=== PATIENT | male | born 1945 | race Caucasian/White ===

== ENCOUNTER → 2016-08-07 | Outpatient (CLI) | payer OTHER, BC ==
[~2016-08-07] MED LIST: AMOX500C3 PO; ASPCH81X PO; ATOR-26 PO; CALC200T PO; CHOL1000 PO; COEN100C7 PO; ESTER C PO; LPR25 PO; MULTTAB58 PO; PANT1TAB48 PO; TICA1TAB PO; VITA400C15 PO; ZNTT/150 PO
[2016-08-07 10:04] LABS: BASO % 0.7 %; BASO ABS # 0.03 K/uL (0-0.2); COMPLETE YES; EOS % 3.4 %; HEMATOCRIT 43.3 % (42-52); IG% 0.2 %; LYMPH % 22.4 %; MEAN CELL VOLUME 91.5 fL (80-100); MEAN CORPUSCULAR HEMOGLOBIN 30.7 pg (25-34); MEAN CORPUSCULAR HGB CONC 33.5 g/dl (32-36); MEAN PLATELET VOLUME 9.2 fL (7.4-10.4); MONO % 11.7 %; NEUT % 61.6 %; PLATELET COUNT 249 K/uL (130-400); RED BLOOD COUNT 4.73 M/uL (4.7-6.1); WHITE BLOOD COUNT 4.46 K/uL (4.8-10.8)
[2016-08-07 10:47] LABS: ALT/SGPT 28 U/L (12-78); AST/SGOT 20 U/L (15-37); BLOOD UREA NITROGEN 13 mg/dl (7-18); BUN/CREATININE RATIO 17.5 (10-20); CARBON DIOXIDE 26 mmol/L (21-32); CHLORIDE 108 mmol/L (98-107); CREATININE 0.72 mg/dl (0.60-1.40); GLUCOSE 88 mg/dl (70-99); POTASSIUM 3.9 mmol/L (3.5-5.1); SODIUM 142 mmol/L (136-145)
[2016-08-07 10:50] LABS: CHOLESTEROL 129 mg/dl (0-200); CHOLESTEROL/HDL RATIO 2.4; HDL CHOLESTEROL 54 mg/dl; LDL CHOLESTEROL CALCULATED 58 mg/dl; TRIGLYCERIDES 85 mg/dl (0-150); VERY LOW DENSITY LIPOPROT CALC 17 mg/dl
== END ==
LOC: C.LAB1850 09:26
PROVIDERS: ATTEND Internal Medicine
DX: E78.5 Hyperlipidemia, unspecified (principal); I25.10 Atherosclerotic heart disease of native coronary artery without angina pectoris; M85.80 Other specified disorders of bone density and structure, unspecified site

== ENCOUNTER → 2016-08-31 | Outpatient (CLI) | payer OTHER, BC | END | disposition home or self-care (01) | LOC: C.MAMM 15:32 | PROVIDERS: ATTEND Internal Medicine | DX: S82.209A Unspecified fracture of shaft of unspecified tibia, initial encounter for closed fracture (principal); X58.XXXA Exposure to other specified factors, initial encounter; Z13.820 Encounter for screening for osteoporosis; M85.89 Other specified disorders of bone density and structure, multiple sites ==

== ENCOUNTER → 2017-02-08 | Outpatient (CLI) | payer OTHER, BC ==
[~2017-02-08] MED LIST changes: +OPTIRAY 320 IV PRN
--- NOTE | 2017-02-08 08:49 | DIAGNOSTIC IMAGING REPORT ---
ABDOMEN AND PELVIS CT WITH AND WITHOUT IV CONTRAST, UROGRAM PROTOCOL CT DOSE: 1617.01 mGycm HISTORY: MICROHEMATURIA TECHNIQUE: Multiaxial CT images of the abdomen and pelvis were performed both before and after the use of intravenous contrast to evaluate the urinary system. Maximal intensity projection images were performed at the workstation by the radiologist. A dose lowering technique was utilized adhering to the principles of ALARA. COMPARISON STUDY: Chest abdomen pelvis CTA 05/23/2013. FINDINGS: No renal or ureteral calculi. No hydronephrosis. No suspicious filling defects seen within the bilateral renal collecting systems, ureters, or bladder. Of note, the proximal to mid right ureter is not opacified but appears to be normal in caliber. Multiple bilateral renal hypodense lesions. Some of these are subcentimeter in size and therefore technically too small to characterize. Dominant lesion within the right kidney measures 8 cm and dominant lesion within the left kidney measures 6.5 cm. These are consistent with cysts. Bladder is not well-distended. There is moderate bladder wall thickening. Tiny diverticulum within the left side of the bladder. Punctate calcification associated with a 1.4 cm hypodense lesion within the left kidney. This is similar to the prior study and likely represents a cyst. Bilateral L5 spondylolysis. There is associated grade I anterolisthesis. Old anterior wedge-shaped compression deformity at T12. Multiple diverticula at the third portion of the duodenum. The liver, spleen, adrenal glands, pancreas, and gallbladder are unremarkable. No retroperitoneal lymphadenopathy. Stable aneurysmal dilatation of the right common iliac artery measuring 2.1 cm. Colonic diverticulosis. No bowel wall thickening or obstruction. Normal appendix. Consolidation seen within the lingula which is only partially visualized. This measures 3 cm. IMPRESSION: 1. No renal or ureteral stones. No hydronephrosis. 2. No suspicious filling defects seen within the opacified bilateral renal collecting systems, ureters, or bladder. 3. Moderate bladder wall thickening. Some of this could be related to the decompression. However, a cystitis is suspected. Recommend correlation with urinalysis. 4. Focal 3 cm consolidation within the lingula which is only partially imaged on this study. Recommend dedicated chest CT for further evaluation and to exclude the possibility of a pulmonary lesion. 5. Bilateral renal hypodense lesions. These favor cysts.. 6. 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 7. Additional findings as described above. 8. These findings were called/faxed to the referring physician's office following dictation. Electronically signed by: Milo Sahni M.D. 02/08/2017 8:48 AM Dictated Date/Time: 02/08/2017 8:22 AM
== END | disposition home or self-care (01) ==
LOC: C.CTS 07:42
PROVIDERS: ATTEND Nurse Practitioner Adult Health
DX: R31.29 Other microscopic hematuria (principal); N32.9 Bladder disorder, unspecified; N28.9 Disorder of kidney and ureter, unspecified; I72.3 Aneurysm of iliac artery

== ENCOUNTER → 2017-02-15 | Outpatient (CLI) | payer OTHER, BC ==
[~2017-02-15] MED LIST changes: -OPTIRAY 320 IV PRN
--- NOTE | 2017-02-15 09:14 | DIAGNOSTIC IMAGING REPORT ---
(CHEST) THORAX WITHOUT CLINICAL HISTORY: 71 years-old Male presenting with R91.1 Pulmonary [id number], follow-up. TECHNIQUE: Multidetector CT imaging of the chest was performed without the use of intravenous contrast. IV contrast: None. A dose lowering technique was used consistent with the principles of ALARA (as low as reasonably achievable). COMPARISON: Correlation made to CT from 02/08/2017. CT DOSE (mGy.cm): The estimated cumulative dose is 432.86 mGycm. FINDINGS: Sterile Tech topogram: Unremarkable. On soft tissue windows, normal thyroid and thoracic inlet. No axillary, supraclavicular, or mediastinal lymphadenopathy. Evaluation of the kirsten limited without intravenous contrast. Ectasia of the ascending aorta, which measures 4.3 cm in transverse dimension. Coronary artery calcification. Normal heart size. No pericardial or pleural effusion. Multiple prominent hypodensities in the kidneys likely cysts but are incompletely characterized. On lung windows, previous seen noted consolidation in the lingula abuts the major fissure and extends to the overlying pleura as well as extending centrally along the peribronchovascular region. Mild emphysema. Solid subpleural 6 mm nodule in the left lower lobe (series 4 image 196). Minimal groundglass opacity in the right lower lobe adjacent to the tortuous descending thoracic aorta, likely atelectasis. Triangular fissural solid nodule in the right upper lobe measuring 5 mm (series 4 image 185). Airways patent. On bone windows, degenerative changes of the spine. Mild osteopenia. Anterior wedging deformity of L1 with approximately 50% height loss. Superior endplate concavity of T9. IMPRESSION: 1. Consolidation in the lingula. In the absence of infectious symptoms, this is concerning for primary bronchogenic neoplasm. Allowing for noncontrast technique, no gross evidence of lymphadenopathy. 2. Solid 6 mm left lower lobe and solid 5 mm right upper lobe nodules. Follow-up per [employer] Society 2017 recommendations. 3. Emphysema. 4. Osteopenia with compression deformity of L1, age indeterminate. Correlate for point tenderness to assess for acuity. The report will be called/faxed according to standard departmental protocol. Please refer to below summary of Fleischner Society 2017 recommendations for follow-up of incidental CT nodules (H Gricelda et al. Guidelines for management of incidental pulmonary nodules detected on CT images: From the Fleischner Society 2017. Radiology 2017; 284: 228-243.) SOLID NODULES Single nodule; size < 6 mm * Low risk patients: No routine follow-up * High risk patients: Optional CT at 12 months Single nodule; size 6-8 mm * Low risk patients: CT at 6-12 months, then consider CT at 18-24 months * High risk patients: CT at 6-12 months, then at 18-24 months Single nodule; size > 8 mm * Either low or high risk patients: Considered CT at 3 months, PET/CT, or tissue sampling Multiple nodules; size < 6 mm * Low risk patients: No routine follow up * High risk patients: Optional CT at 12 months Multiple nodules; size 6-8 mm * Low risk patients: CT at 3-6 months, then consider CT at 18-24 months * High risk patients: CT at 3-6 months, then at 18-24 months Multiple nodules; size > 8 mm * Low risk patients: CT at 3-6 months, then consider at 18-24 months * High risk patients: CT at 3-6 months, then at 18-24 months Note: These guidelines apply to incidental nodules. These guidelines do not apply to patients younger than 35 years, immunocompromised patients, or patients with cancer. * Low risk patients: Minimal or absent history of smoking and/or other known risk factors * High risk patients: History of smoking, exposure to other carcinogens, emphysema, fibrosis, upper lobe location, family history of lung cancer, etc. * If a nodule up to 8 mm is partly solid or is ground glass, further follow-up is required after 24 months to exclude possible slow growing adenocarcinoma. SUBSOLID NODULES Single ground-glass nodule * Nodule size < 6 mm: No routine follow-up * Nodule size > or = 6 mm: CT at 6-12 months to confirm persistence, then CT every 2 years until 5 years Single part-solid nodule * Nodule size < 6 mm: No routine follow-up * Nodules size > or = 6 mm: CT at 3-6 months to confirm persistence. If unchanged and solid component remains < 6 mm, annual CT should be performed for 5 years Multiple nodules * Nodule size < 6 mm: CT at 3-6 months. If stable, consider CT at 2 and 4 years. * Nodules size > or = 6 mm: CT at 3-6 months. Subsequent management based on the most suspicious nodule(s) Electronically signed by: Jin De La Rosa M.D. 02/15/2017 9:12 AM Dictated Date/Time: 02/15/2017 9:00 AM
== END | disposition home or self-care (01) ==
LOC: C.CTS 08:46
PROVIDERS: ATTEND Internal Medicine
DX: R91.8 Other nonspecific abnormal finding of lung field (principal); J43.9 Emphysema, unspecified; M85.88 Other specified disorders of bone density and structure, other site

== ENCOUNTER → 2017-03-14 | Outpatient (CLI) | payer OTHER, BC ==
[~2017-03-14] MED LIST changes: +ACET-1256 PO; +AMOX1TAB43 PO; +BIOF500T PO; -ESTER C PO; -LPR25 PO; +METO25TA56 PO; +PANT1TAB3 PO; -PANT1TAB48 PO; +TRAM-10 PO; -VITA400C15 PO; +VITA400C28 PO
--- NOTE | 2017-03-14 14:57 | DIAGNOSTIC IMAGING REPORT ---
PET/CT SKULL-THIGH CLINICAL HISTORY: PULMONARY NODULE COMPARISON STUDY: Chest CT dated 02/15/2017 FINDINGS: The patient was injected with 15.2 mCi of F 18 labeled FDG. Findings standard induction phase, PET/CT scanning is performed from the skull base the upper thigh region. Activity within the neck is felt to be physiologic. Within the chest, there is no pathologic jessie activity. There is a stable 19 x 7 mm prevascular lymph node. The previously described 5 mm perifissural right upper lobe nodule is barely perceptible on this study. This is not FDG avid. The previously described 6 mm pleural-based left lower lobe pulmonary nodule is also barely perceptible. Again this is not FDG avid. There is a persistent area of masslike consolidation within the lingula measuring 4 cm. This is mildly FDG avid with an SUV maximum of 2.5. Bronchoscopic evaluation and biopsy is recommended in follow-up given the persistence of this abnormality. Within the upper abdomen, there are no FDG avid hepatic or splenic lesions. There are bilateral renal cysts. There are no FDG avid adrenal masses. There is no FDG avid abdominal pelvic lymphadenopathy. There is physiologic urinary tract and bowel activity. There is mild aneurysmal dilatation of the right common iliac artery. IMPRESSION: 1. Persistent area of masslike consolidation within the lingula measuring 4 cm. This should be presumed to represent a bronchogenic carcinoma until proven otherwise. This is mildly FDG avid with SUV maximum of 2.5. Bronchoscopic evaluation and biopsy is recommended in follow-up. 2. No evidence of FDG avid adenopathy. Electronically signed by: Yunier Levi M.D. 03/14/2017 2:56 PM Dictated Date/Time: 03/14/2017 2:40 PM
== END | disposition home or self-care (01) ==
LOC: C.PET 07:12
PROVIDERS: ATTEND Physician Assistant
DX: R91.1 Solitary pulmonary nodule (principal)

== ENCOUNTER 2017-03-16 11:12 | Observation (INO) | payer OTHER, BC ==
[2017-03-13 17:31] LABS: BASO % 0.4 %; BASO ABS # 0.02 K/uL (0-0.2); COMPLETE YES; EOS % 3.4 %; HEMATOCRIT 42.7 % (42-52); IG% 0.2 %; LYMPH % 29.1 %; LYMPH ABS # 1.56 K/uL (1.2-3.4); MEAN CORPUSCULAR HEMOGLOBIN 31.3 pg (25-34); MEAN PLATELET VOLUME 9.1 fL (7.4-10.4); MONO % 12.7 %; NEUT % 54.2 %; PLATELET COUNT 263 K/uL (130-400); RED BLOOD COUNT 4.64 M/uL (4.7-6.1); WHITE BLOOD COUNT 5.37 K/uL (4.8-10.8)
[2017-03-13 17:43] LABS: PARTIAL THROMBOPLASTIN RATIO 1.1; PROTHROMBIN TIME (PATIENT) 10.8 SECONDS (9.0-12.0)
[2017-03-13 18:04] LABS: ALT/SGPT 30 U/L (12-78); BLOOD UREA NITROGEN 16 mg/dl (7-18); BUN/CREATININE RATIO 19.7 (10-20); CARBON DIOXIDE 26 mmol/L (21-32); CHLORIDE 104 mmol/L (98-107); CREATININE 0.81 mg/dl (0.60-1.40); GLUCOSE 85 mg/dl (70-99); POTASSIUM 4.1 mmol/L (3.5-5.1); SODIUM 137 mmol/L (136-145)
[2017-03-13 18:07] LABS: ALKALINE PHOSPHATASE 75 U/L (45-117); AST/SGOT 22 U/L (15-37)
[2017-03-14 16:48] VITALS: BMI 29.0
[2017-03-16] VITALS (8 sets, daily range): BP systolic 97–151; BP diastolic 63–87; PULSE 66–101; TEMP 36.5–37; O2SAT 93–100; Ht 180.3 cm; Wt 93.2 kg
[~2017-03-16] VITALS: Ht 180.3 cm; Wt 93.2 kg
--- NOTE | 2017-03-16 10:19 | History and Physical ---
History & Physical Date of Service Mar 16, 2017. History & Physical 71-year-old male presenting for EBUS/ENB evaluation of pulmonary nodules. Recently the patient was worked up for micro hematuria and imaging noted a lingular infiltrate, CT of the abdomen 02/08/2017. Further evaluation by CT of the chest on 02/18/2017 showed lingular infiltrate as well as 6 mm left lower lobe and 5 mm right upper lobe nodules. PET-CT performed 03/14/2017 shows continuation of a 4 cm persistent atelectasis versus mass type lesion in the lingula with only minimal FDG avidity at 2.5. No other signs of notable FDG avidity were noted. CT of the chest 05/23/2013 does not show this infiltrative pattern/mass within the lingula. She also noted on the CT of the chest as well as PET imaging there appears to be a 6L node with greatest dimension of 7 mm. Patient does have a significant smoking history with greater than a 40 pack per day history. He did quit after coronary artery stents were placed status post NE. . PmHx: 1. Actinic keratosis 2. Benign essential hypertension 3. Cath Stent Placement 4. Colon polyps 5. Coronary arteriosclerosis/NE 6. Dermatitis 7. Diverticula, colon 8. Dyslipidemia 9.\ Esophageal reflux 10. Hypercholesterolemia 11. Internal hemorrhoids 12. Intertrigo 13. Neoplasm of uncertain behavior of skin 14. Osteoarthritis of knee 15. Osteopenia 16. Pulmonary nodule 17. Rosacea 18. Spondylosis without myelopathy or radiculopathy, lumbosacral region 19. Venous insufficiency 20. Bilateral renal cysts 21. History of Closed fracture of tibia 22. History of Compression fracture of lumbar vertebra 23. History of Eustachian tube dysfunction 24. History of allergic rhinitis 25. History of anemia 26. History of Peptic Ulcer Surgical History 1. Cath Stent Placement 2. History of Colonoscopy (Fiberoptic) Screening 3. History of Kidney Surgery Drainage 4. History of Wrist Excision Of Ganglion Family History 1. Family history of hypertension 2. Family history of kidney stones 3. Family history of Prostate Cancer 4. Family history of diabetes mellitus Social History Denied: History of Drug Use Former smoker Marital History - Currently Occupation: Parentage Social alcohol use (Z78.9) Uses Safety Equipment - Seatbelts Current Meds 1. Metoprolol Tartrate 25 MG Oral Tablet; TAKE ONE-HALF TABLET BY MOUTH TWICE 2. Brilinta 90 MG Oral Tablet; TAKE ONE TABLET BY MOUTH TWICE DAILY DIRECTED; 3. Atorvastatin Calcium 80 MG Oral Tablet; TAKE ONE TABLET BY MOUTH ONCE DAILY AT 4. Pantoprazole Sodium 40 MG Oral Tablet Delayed Release; TAKE 1 TABLET DAILY; 5. Zantac 150 MG Oral Tablet; TAKE 1 TABLET TWICE DAILY; 6. Tamsulosin HCl - 0.4 MG Oral Capsule; Take 1 table PO QD 30 minutes after supper. 7. Calcium 600/Vitamin D 600-400 MG-UNIT Oral Tablet; Take 1 tablet daily; 8. Vitamin D 2000 UNIT Oral Capsule; TAKE ONE TABLET PO QD; 9. Aspirin 81 MG TABS; TAKE 1 TABLET DAILY 10. Multi Complete Oral Capsule; TAKE DIRECTED; 11. Tylenol Extra Strength 500 MG Oral Tablet; TAKE TABLET PRN 12. Vitamin C TABS; 13. Vitamin E 400 UNIT Oral Tablet; Allergies 1. Codeine Derivatives 2. Plavix TABS 3. Sulfa drugs Immunizations Influenza --- Series1: 22-Apr-2012; Series2: 20-Jan-2013; Series3: 05-Jan-2014; Series4: 04-Feb-2015; Series5: 29-Dec-2015; Series6: 12-Feb-2017 PCV --- Series1: 09-Aug-2016 PPSV --- Series1: 08-Aug-2012 Vital Signs Height: 5 ft 11 in Weight: 209 lb BMI Calculated: 29.15 BSA Calculated: 2.15 Heart Rate: 72 Respiration: 18 O2 Saturation: 97, RA Temperature: 97.9 F Blood Pressure: 142 / 86, LUE, Sitting Physical Exam General: Patient is awake, alert, cooperative, and in no acute distress. Well developed. Well-nourished. Skin: Normal appearance, texture, and temperature. No apparent rash or ecchymoses. HEENT: Normocephalic and atraumatic. Eyes are anicteric and non-erythematous. EOMI c PERRLA. Hearing intact and without difficulty. Nose appears normal and without drainage. Trachea midline. Thyroid appears normal, and neck is supple. Lungs: Clear to auscultation. No adventitious sounds heard. No accessory muscle use. Chest is nontender to palpation Heart: Regular rate and rhythm. Normal S1 and S2 heard. No S3/S4, rubs, murmurs , or gallops appreciated. Abdomen: Active bowel sounds heard throughout all 4 quadrants. Abdomen is soft and nontender with no organomegally or masses to palpation. Extremities: No cyanosis or edema. Gait normal and without difficulty. Freely moving extremities during exam. Neuro: Alert and oriented X3. CN II-XII grossly intact. Sensation and motor function grossly intact. Psych: Mood and affect are normal.
[~2017-03-16 11:12] MED LIST changes: -AMOX1TAB43 PO; +ATROPINE SULFATE 0.1 MG/ML 5ML SYR IV PRN; +EpHEDrine SULFATE INJ 50 MG/ML AMP IV PRN; +FENTANYL CITRATE INJ 50 MCG/1 ML 2 ML VIAL IV PRN; +KETOROLAC TROMETHAMINE 15 MG/ML VIAL IV. PRN; +LACTATED RINGER'S 1000ML 1,000 ML IV SCH; +ONDANSETRON INJ 2 MG/ML 2 ML VIAL IV PRN
--- NOTE | 2017-03-16 11:47 | History & Physical Bridge Note ---
H&P Re-Evaluation Bridge Note: I have examined the patient, reviewed the History & Physical and in the interval since the performance of the History & Physical I have noted the following changes of clinical significance: No changes noted
[2017-03-16] MEDS ORDERED: FENTANYL CITRATE INJ 50 MCG/1 ML 2 ML VIAL ONE ×2 (12:33→14:06)
[2017-03-16] MEDS ORDERED: MIDAZOLAM HCL 1 MG/ML 2ML VIAL ONE (12:33)
[2017-03-16] MEDS ORDERED: ONDANSETRON INJ 2 MG/ML 2 ML VIAL ONE (14:57)
[2017-03-16] MEDS ORDERED: EpHEDrine SULFATE 50MG/5ML SYR ONE (14:57)
[2017-03-16] MEDS ORDERED: PROPOFOL IV EMULSION 10 MG/ML 20 ML VIAL IV ONE (14:57)
--- NOTE | 2017-03-16 15:29 | Discharge Instructions ---
Discharge Instructions Date of Service Mar 16, 2017. Admission Reason for Admission: Pulmonary Nodule Discharge Discharge Diagnosis / Problem: lung nodule Discharge Goals Goal(s): Diagnostic testing Activity Recommendations Activity Limitations: resume your previous activity . Instructions / Follow-Up Instructions / Follow-Up At [facility] pulmonary [facility] Current Hospital Diet Patient's current hospital diet: Discharge Diet Recommended Diet: Regular Diet Procedures Procedures Performed: Endobronchial Ultrasound Guided Bronchoscopy and Electromagnetic Navigational Bronchoscopy, fine needle aspiration, cytology brushing, bronchial washing Pending Studies Studies pending at discharge: yes List of pending studies: Chest x-ray Laboratory Results Lipid Panel Test 02/01/17 08:40 Range/Units Triglycerides Level 92 0-150 mg/dl Cholesterol Level 108 0-200 mg/dl HDL Cholesterol 49 mg/dl Cholesterol/HDL Ratio 2.2 LDL Cholesterol, Calculated 41 mg/dl Medical Emergencies . Who to Call and When: Medical Emergencies: If at any time you feel your situation is an emergency, please call 911 immediately. . Non-Emergent Contact Non-Emergency issues call your: Hse Manager . . "Provider Documentation" section prepared by Arnaldo Kemp. . VTE Core Measure Inpt VTE Proph given/why not?: Other Anticoagulation
--- NOTE | 2017-03-16 15:57 | DIAGNOSTIC IMAGING REPORT ---
CHEST ONE VIEW PORTABLE CLINICAL HISTORY: 71 years-old Male presenting with r/o PTX. TECHNIQUE: 03/16/2017 COMPARISON: 05/23/2013. FINDINGS: Atherosclerosis of aortic arch. Cardiac silhouette top normal in size. Moderate left pneumothorax with a pleural separation measuring 26 mm. Minimal retrocardiac opacity at the left lung base. Right lung and pleural space essentially clear. Degenerative changes of the right acromioclavicular joint. Upper abdomen normal. IMPRESSION: 1. Moderate left pneumothorax with left basilar atelectasis. The report will be called/faxed according to standard departmental protocol. Electronically signed by: Jin De La Rosa M.D. 03/16/2017 3:56 PM Dictated Date/Time: 03/16/2017 3:54 PM
--- NOTE | 2017-03-16 16:00 | DIAGNOSTIC IMAGING REPORT ---
CHEST 1 VIEW FRONTAL CLINICAL HISTORY: [employer] COMPARISON STUDY: PET CT 03/14/2017. FINDINGS: Total fluoroscopy time is 130 seconds. Single fluoroscopic spot image of the left lower chest was submitted. There is a bronchoscope identified within the base of the left lung. IMPRESSION: Fluoroscopy provided for bronchoscopy. Electronically signed by: Milo Sahni M.D. 03/16/2017 3:58 PM Dictated Date/Time: 03/16/2017 3:57 PM
[2017-03-16] MEDS ORDERED: ONDANSETRON INJ 2 MG/ML 2 ML VIAL IV PRN (17:30)
[2017-03-16] MEDS ORDERED: ACETAMINOPHEN 325 MG TAB PO PRN (17:30)
[2017-03-16] MEDS ORDERED: TRAMADOL HCL 50 MG TAB PO PRN (17:45)
--- NOTE | 2017-03-16 18:13 | Anesthesiology Progress Note ---
Anesthesia Post Op Note Date & Time Mar 16, 2017 at 18:13 Vital Signs Pain Intensity: 0 Vital Signs Past 12 Hours Date Time Temp Pulse Resp B/P (MAP) Pulse Ox O2 Delivery O2 Flow Rate FiO2 03/16/17 18:00 36.7 83 20 143/72 100 Room Air 15 Oxymask 03/16/17 17:15 36.5 66 20 143/72 94 Room Air 03/16/17 16:45 36.5 73 20 139/63 93 Room Air 03/16/17 16:16 36.5 66 20 97/66 93 Room Air 03/16/17 16:15 36.1 61 20 118/67 93 Room Air 03/16/17 16:05 58 18 122/77 95 Room Air 03/16/17 15:55 69 20 129/77 93 Room Air 03/16/17 15:45 71 16 122/84 98 Oxymask 10 03/16/17 15:36 36.0 79 18 135/75 96 Oxymask 10 03/16/17 11:50 36.7 77 17 122/67 (85) 97 Room Air Notes Mental Status: alert / awake / arousable, participated in evaluation Pt Amnestic to Procedure: Yes Nausea / Vomiting: adequately controlled Pain: adequately controlled Airway Patency, RR, SpO2: stable & adequate BP & HR: stable & adequate Hydration State: stable & adequate Anesthetic Complications: no major complications apparent
--- NOTE | 2017-03-16 18:32 | Pulmonary Consultation ---
History General Date of Service: Mar 16, 2017. Stated Complaint: Pneumothorax HPI The patient is a 71 year old male who presents to [facility] with complaints of Pulmonary Nodule. The patient's primary care provider is Zack Tate M.D.. 71-year-old male presenting for EBUS/ENB evaluation of pulmonary nodules. Patient underwent EBUS/ENB and postoperatively was noted via a chest x-ray to have a large left-sided pneumothorax. Initially the patient was worked up with CT of the abdomen on 02/08/2017 for hematuria. At that time a lingular infiltrate was noted in the CT of the chest was performed 02/18/2017 showing lingular nodule/mass along with 6 mm left lower lobe and 5 mm right upper lobe nodules. A dedicated PET-CT performed 03/14/2017 showed continuation of the 4 centimeter lingular atelectasis versus mas with minimal FDG avidity at 2.5. Because the mass was notably large patient then underwent EBUS/ENB today secondary to the transthoracic needle aspirations patient incurred a pneumothorax. Postoperatively the patient is notably stable but does note pleuritic chest pain on the left side. He has a PmHx: Significant for: Microscopic hematuria, coronary artery disease status post catheterization and stent placement ( Brilinta 90mg & ASA 81mg) and greater than 40 pack per day history of smoking. At the time of my interview the patient denies: Fever, chills, productive cough, hemoptysis or classic cardiac chest pain. PmHx: 1. Actinic keratosis 2. Benign essential hypertension 3. Cath Stent Placement 4. Colon polyps 5. Coronary arteriosclerosis/OK 6. Dermatitis 7. Diverticula, colon 8. Dyslipidemia 9.\ Esophageal reflux 10. Hypercholesterolemia 11. Internal hemorrhoids 12. Intertrigo 13. Neoplasm of uncertain behavior of skin 14. Osteoarthritis of knee 15. Osteopenia 16. Pulmonary nodule 17. Rosacea 18. Spondylosis without myelopathy or radiculopathy, lumbosacral region 19. Venous insufficiency 20. Bilateral renal cysts 21. History of Closed fracture of tibia 22. History of Compression fracture of lumbar vertebra 23. History of Eustachian tube dysfunction 24. History of allergic rhinitis 25. History of anemia 26. History of Peptic Ulcer Surgical History 1. Cath Stent Placement 2. History of Colonoscopy (Fiberoptic) Screening 3. History of Kidney Surgery Drainage 4. History of Wrist Excision Of Ganglion Family History 1. Family history of hypertension 2. Family history of kidney stones 3. Family history of Prostate Cancer 4. Family history of diabetes mellitus Social History Denied: History of Drug Use Former smoker Marital History - Currently Occupation: Parentage Social alcohol use (Z78.9) Uses Safety Equipment - Seatbelts Current Meds 1. Metoprolol Tartrate 25 MG Oral Tablet; TAKE ONE-HALF TABLET BY MOUTH TWICE 2. Brilinta 90 MG Oral Tablet; TAKE ONE TABLET BY MOUTH TWICE DAILY DIRECTED; 3. Atorvastatin Calcium 80 MG Oral Tablet; TAKE ONE TABLET BY MOUTH ONCE DAILY AT 4. Pantoprazole Sodium 40 MG Oral Tablet Delayed Release; TAKE 1 TABLET DAILY; 5. Zantac 150 MG Oral Tablet; TAKE 1 TABLET TWICE DAILY; 6. Tamsulosin HCl - 0.4 MG Oral Capsule; Take 1 table PO QD 30 minutes after supper. 7. Calcium 600/Vitamin D 600-400 MG-UNIT Oral Tablet; Take 1 tablet daily; 8. Vitamin D 2000 UNIT Oral Capsule; TAKE ONE TABLET PO QD; 9. Aspirin 81 MG TABS; TAKE 1 TABLET DAILY 10. Multi Complete Oral Capsule; TAKE DIRECTED; 11. Tylenol Extra Strength 500 MG Oral Tablet; TAKE TABLET PRN 12. Vitamin C TABS; 13. Vitamin E 400 UNIT Oral Tablet; Allergies 1. Codeine Derivatives 2. Plavix TABS 3. Sulfa drugs Immunizations Influenza --- Series1: -Apr-2012; Series2: 20-Jan-2013; Series3: 05-Jan-2014; Series4: 04-Feb-2015; Series5: 29-Dec-2015; Series6: 12-Feb-2017 PCV --- Series1: 09-Aug-2016 PPSV --- Series1: 08-Aug-2012 Vital Signs Height: 5 ft 11 in Weight: 209 lb BMI Calculated: 29.15 BSA Calculated: 2.15 Heart Rate: 72 Respiration: 18 O2 Saturation: 97, RA Temperature: 97.9 F Blood Pressure: 142 / 86, LUE, Sitting Physical Exam General: Patient is awake, alert, cooperative, and in no acute distress. Well developed. Well-nourished. Skin: Normal appearance, texture, and temperature. No apparent rash or ecchymoses. HEENT: Normocephalic and atraumatic. Eyes are anicteric and non-erythematous. EOMI c PERRLA. Hearing intact and without difficulty. Nose appears normal and without drainage. Trachea midline. Thyroid appears normal, and neck is supple. Lungs: Clear to auscultation. No adventitious sounds heard. No accessory muscle use. Chest is nontender to palpation Heart: Regular rate and rhythm. Normal S1 and S2 heard. No S3/S4, rubs, murmurs , or gallops appreciated. Abdomen: Active bowel sounds heard throughout all 4 quadrants. Abdomen is soft and nontender with no organomegally or masses to palpation. Extremities: No cyanosis or edema. Gait normal and without difficulty. Freely moving extremities during exam. Neuro: Alert and oriented X3. CN II-XII grossly intact. Sensation and motor function grossly intact. Psych: Mood and affect are normal. Historian: patient, partner, EMS Review of Systems Constitutional: reports: as stated in HPI Eyes: reports: no symptoms ENT: reports: no symptoms Cardiovascular: reports: no symptoms Respiratory: reports: as stated in HPI Gastrointestinal: reports: no symptoms Genitourinary - Male: reports: no symptoms Musculoskeletal: reports: no symptoms Integumentary: reports: no symptoms Neurologic: reports: no symptoms Psychiatric: reports: no symptoms Endocrine: no symptoms Hematologic / Lymphatic: no symptoms Allergic / Immunologic: no symptoms Past Medical History Past Medical History: Please refer to HPI Past Surgical History: Please refer to [facility] Family History Please refer to HPI Social History Hx Tobacco Use In Past Year?: No (SMOKED 1 1/2 PPD X 50 YRS-QUIT 2013) Smoking Status: Former Smoker Marital status: Immunizations History of Influenza Vaccine: Yes Influenza Vaccine Date: Dec 06, 2012 History of Tetanus Vaccine?: Yes Tetanus Immunization Date: Jun 05, 2010 History of Pneumococcal: Yes Pneumococcal Date: Dec 06, 2012 History of Hepatitis B Vaccine: No History of MDRO History of MDRO: No Allergies Coded Allergies: Chlorhexidine (Verified Allergy, Intermediate, itching-PT DENIES, 03/16/17 ) Clopidogrel (Verified Allergy, Intermediate, RASH, 03/16/17) Unclassified Drugs (Verified Allergy, Unknown, [id number], 03/16/17) Codeine (Verified Adverse Reaction, Intermediate, NAUSEA, 03/16/17) Current Medications Reported Home Medications Medications Dose Route/Sig Max Daily Dose Days Date Category Dose Instructions Lopressor (Metoprolol Tartrate) 25 Mg Tab 12.5 Mg PO BID 03/13/17 Reported Shelia-C (Bioflavonoid Products) 1 Tab Tab 500 Mg PO QAM 03/13/17 Reported Alph-E (Vitamin E) 400 Unit Cap 400 Units PO QAM 03/13/17 Reported Ultram (Tramadol HCl) 50 Mg Tab 50 Mg PO Q4H PRN 03/13/17 Reported Tylenol (Acetaminophen) 500 Mg Tab 1,000 Mg PO PRN 03/13/17 Reported Amoxil (Amoxicillin) 500 Mg Cap 4 Cap PO DAILY 07/19/15 Reported TAKE BEFORE DENTAL/INVASIVE PROCEDURES Coq10 (Coenzyme Q10 (Ubidecarenone)) 100 Mg Cap 1 Cap PO QAM 07/19/15 Reported Oscal 500/200 D-3 (Calcium Carbonate-Vitamin D) 1 Tab Tab 1 Tab PO QAM 07/19/15 Reported Vitamin D3 (Cholecalciferol) 1,000 Unit Tab 1 Tab PO QAM 90 07/19/15 Reported Protonix (Pantoprazole) 40 Mg Tab 40 Mg PO QPM 07/19/15 Reported Zantac (Ranitidine HCl) 150 Mg Tab 150 Mg PO BID 07/19/15 Reported Aspirin Chewable (Aspirin) 81 Mg Chew 81 Mg PO QAM 07/19/15 Reported PER SPOUSE-WILL CONTINUE TAKING BEFORE SURG PER THEIR INSTRUCTIONS Brilinta (Ticagrelor) 90 Mg Tab 1 Tab PO BID 07/19/15 Reported PER SPOUSE-INSTRUCTED TO TAKE LAST DOSE 03/12/17 AM AND HOLD Lipitor (Atorvastatin Calcium) 80 Mg Tab 80 Mg PO QAM 07/19/15 Reported Multivitamin (Multiple Vitamin) 1 Tab Tab 1 Tab PO QAM 01/11/12 Reported Physical Physical Exam Vital Signs: Date Time Temp Pulse Resp B/P (MAP) Pulse Ox O2 Delivery O2 Flow Rate FiO2 03/16/17 18:00 36.7 83 20 143/72 100 Room Air 15 Oxymask 03/16/17 17:15 36.5 66 20 143/72 94 Room Air 03/16/17 16:45 36.5 73 20 139/63 93 Room Air 03/16/17 16:16 36.5 66 20 97/66 93 Room Air 03/16/17 16:15 36.1 61 20 118/67 93 Room Air 03/16/17 16:05 58 18 122/77 95 Room Air 03/16/17 15:55 69 20 129/77 93 Room Air 03/16/17 15:45 71 16 122/84 98 Oxymask 10 03/16/17 15:36 36.0 79 18 135/75 96 Oxymask 10 03/16/17 11:50 36.7 77 17 122/67 (85) 97 Room Air General Appearance: WELL-APPEARING, NO APPARENT DISTRESS Head: NORMOCEPHALIC, ATRAUMATIC Eyes: PERRLA, NO DISCHARGE, EOMI, SCLERAE NORMAL, CONJUNCTIVAE NORMAL ENT: NORMAL EAR EXAM, NORMAL NASAL EXAM, NORMAL MOUTH EXAM, NORMAL THROAT EXAM , NORMAL DENTAL EXAM, NORMAL SINUS EXAM Neck: NORMAL RANGE OF MOTION, NO TENDERNESS, TRACHEA MIDLINE, NO STRIDOR Respiratory: other (Decreased breath sounds left hemithorax notable dullness to percussion) Cardiovasular: REGULAR RATE/RHYTHM, NORMAL S1S2, other (Distant heart sounds unable to auscultate for murmurs rubs or gallops) Abdomen: NON TENDER, NORMAL BOWEL SOUNDS, NO REBOUND, NO MASSES, NO GUARDING, NO ORGANOMEGALY Genitourinary - Male: EXTERNAL GENITALIA NORMAL Back: NORMAL INSPECTION, NO MIDLINE TENDERNESS, NO CVA TENDERNESS, NO PARAVERTEBRAL TTP Upper Extremities: NO EDEMA, NO DEFORMITY, NORMAL ROM Lower Extremities: NO EDEMA, NO DEFORMITY, NORMAL ROM Pulses: carotid (R) (2+), carotid (L) (2+), dorsalis pedis (R) (1+), dorsalis pedis (L) (1+) Neuro: ALERT, ORIENTED x 3, NORMAL MOTOR EXAM, NORMAL SENSATION, NORMAL CEREBELLAR EXAM Reflexes: biceps (R) (2+), bicpes (L) (2+), patellar (R) (1+), patellar (L) (1+ ) Babinski Testing: right (downgoing), left (downgoing) Psychiatric: NORMAL AFFECT, NO SUICIDAL IDEATION Diagnostics Labs Microbiology Results 03/16/17 Fungal Smear, Received Pending 03/16/17 Fungal Culture, Received Pending 03/16/17 Acid Fast Stain, Received Pending 03/16/17 Mycobacterial Culture, Received Pending 03/16/17 Gram Stain, Received Pending 03/16/17 Bronchoalveolar Lavage Culture, Received Pending Diagnostic Radiology Chest x-ray: Shows the large left-sided pneumothorax which appears to have adhesions to the parietal pleural surface as is asymmetrical. Its largest distance at the apices is over 2 centimeters but at the hilum less than 2 centimeters. Impression Assessment and Plan 71-year-old gentleman postprocedural pneumothorax 1. Pneumothorax: At this time will place the patient on high-flow oxygen and monitor over the next 12 hours. I will then obtain a noncontrast CT of the chest for further evaluation of the pneumothorax as it does appear to be asymmetrical in its presentation. If it does not respond to 100% oxygen therapy at that time will perform needle thoracoscopy. 2. Cardiac: Patient does have a history of coronary artery disease currently treated with ASA and Brilinta. Will have to hold at this time for possible tube thoracoscopy.
[2017-03-16] MEDS ORDERED: IV FLUIDS COMPLETED PRN (20:30)
[2017-03-16] MEDS: METOPROLOL TARTRATE 25 MG TAB PO SCH (21:41)
[2017-03-16] MEDS: RANITIDINE HCL 150 MG TAB PO SCH (21:41)
[2017-03-16] MEDS: PANTOprazole SOD 40 MG TAB PO SCH (21:42)
--- NOTE | 2017-03-16 22:07 | History and Physical ---
History & Physical Date & Time of Service: Mar 16, 2017 at 19:40 Chief Complaint: Pulmonary Nodule, Pneumothorax After Biopsy Primary Care Physician: Zack Tate M.D. History of Present Illness Source: patient, family, hospital records 71 yo male here for outpatient bronchoscopy with biopsy of nodule, found to have a left sided pneumothorax post operatively. Patient complaining of some left sided chest pain, no dyspnea or cough. Patient evaluated by Dr. Kemp post operatively, made recommendations for high flow oxygen for 12 hours and will check a CT chest tomorrow and make decision on need for needle thorascopy. Patient also has a history of CAD with stenting in the past, maintained on aspirin and Brilinta. No coronary symptoms prior to biopsy. He has a 40 pack year history but quit after suffering an AL. Past Medical/Surgical History Pulmonary nodule AL with coronary stenting HTN Dyslipidemia Colon polyps GERD Osteopenia PUD Surgical history 1. Cath Stent Placement 2. History of Colonoscopy (Fiberoptic) Screening 3. History of Kidney Surgery Drainage 4. History of Wrist Excision Of Ganglion 5. s/p bronchoscopy Family History Family History 1. Family history of hypertension 2. Family history of kidney stones 3. Family history of Prostate Cancer 4. Family history of diabetes mellitus Social History Smoking Status: Former Smoker Alcohol Use: none Marital Status: Immunizations History of Influenza Vaccine: Yes Influenza Vaccine Date: Dec 06, 2012 History of Tetanus Vaccine?: Yes Tetanus Immunization Date: Jun 05, 2010 History of Pneumococcal: Yes Pneumococcal Date: Dec 06, 2012 History of Hepatitis B Vaccine: No Multi-Drug Resistant Organisms History of MDRO: No Allergies Coded Allergies: Chlorhexidine (Verified Allergy, Intermediate, itching-PT DENIES, 03/16/17 ) Clopidogrel (Verified Allergy, Intermediate, RASH, 03/16/17) Unclassified Drugs (Verified Allergy, Unknown, [id number], 03/16/17) Codeine (Verified Adverse Reaction, Intermediate, NAUSEA, 03/16/17) Home Medications Scheduled Acetaminophen (Tylenol), 1,000 MG PO PRN Amoxicillin (Amoxil), 4 CAP PO DAILY Aspirin (Aspirin Chewable), 81 MG PO QAM Atorvastatin (Lipitor), 80 MG PO QAM Bioflavonoid Products (Shelia-C), 500 MG PO QAM Calcium Carbonate-Vitamin D (Oscal 500/200 D-3), 1 TAB PO QAM Cholecalciferol (Vitamin D3), 1 TAB PO QAM Coenzyme Q10 (Ubidecarenone) (Coq10), 1 CAP PO QAM Metoprolol Tartrate (Lopressor) (Lopressor), 12.5 MG PO BID Multiple Vitamin (Multivitamin), 1 TAB PO QAM Pantoprazole (Protonix), 40 MG PO QPM Ranitidine (Zantac), 150 MG PO BID Ticagrelor (Brilinta), 1 TAB PO BID Vitamin E (Alph-E), 400 UNITS PO QAM Scheduled PRN Tramadol (Ultram), 50 MG PO Q4H PRN for Pain Review of Systems Constitutional: No fever, No chills, No sweats, No weight loss, No weakness, No fatigue, No problem reported Eyes: No worsening of vision, No eye pain, No redness, No discharge, No diplopia, No problem reported ENT: No hearing loss, No unusual epistaxis, No nasal symptoms, No sore throat, No tinnitus, No dental problems, No trouble swallowing, No problem reported Respiratory: No cough, No sputum, No wheezing, No shortness of breath, No dyspnea on exertion, No dyspnea at rest, No hemoptysis, No problem reported Cardiovascular: + chest pain, No orthopnea, No PND, No edema, No claudication, No palpitations, No problem reported Abdomen: No pain, No nausea, No vomiting, No diarrhea, No constipation, No GI bleeding, No problem reported Musculoskeletal: No joint pain, No muscle pain, No swelling, No calf pain, No problem reported Genitourinary - Male: No hematuria, No dysuria, No urinary frequency, No urinary urgency Neurologic: No memory loss, No paralysis, No weakness, No numbness/tingling, No vertigo, No balance problems, No problem reported Psychiatric: No depression symptoms, No anhedonism, No anxiety, No insomnia, No substance abuse, No problem reported Endocrine: No fatigue, No excessive thirst, No excessive urination, No problem reported Hematologic / Lymphatic: No abnormal bleeding/bruising, No clotting problems, No swollen lymph nodes, No night sweats, No problem reported Integumentary: No rash, No itch, No new/changing skin lesions, No color change , No bleeding, No problem reported Allergic / Immunologic: No environmental allergies, No seasonal allergies, No pet sensitivities, No food allergies, No hives, No frequent infections, No poor healing, No prolonged convalescence, No problem reported Physical Exam Vital Signs Date Time Temp Pulse Resp B/P (MAP) Pulse Ox O2 Delivery O2 Flow Rate FiO2 03/16/17 18:25 36.5 94 18 151/80 100 Mask 15.0 100 03/16/17 18:00 36.7 83 20 143/72 100 Room Air 15 Oxymask 03/16/17 17:15 36.5 66 20 143/72 94 Room Air 03/16/17 16:45 36.5 73 20 139/63 93 Room Air 03/16/17 16:16 36.5 66 20 97/66 93 Room Air 03/16/17 16:15 36.1 61 20 118/67 93 Room Air 03/16/17 16:05 58 18 122/77 95 Room Air 03/16/17 15:55 69 20 129/77 93 Room Air 03/16/17 15:45 71 16 122/84 98 Oxymask 10 03/16/17 15:36 36.0 79 18 135/75 96 Oxymask 10 03/16/17 11:50 36.7 77 17 122/67 (85) 97 Room Air General Appearance: WD/WN, no apparent distress Head: normocephalic, atraumatic Eyes: normal inspection, EOMI, sclerae normal ENT: normal ENT inspection, hearing grossly normal, pharynx normal Neck: supple, no adenopathy, no JVD, trachea midline Respiratory/Chest: chest non-tender, lungs clear, no respiratory distress, no accessory muscle use, + decreased breath sounds (absent breath sounds on the left side) Cardiovascular: regular rate, rhythm, no edema, no gallop, no JVD, no murmur, normal peripheral pulses Abdomen/GI: normal bowel sounds, non tender, soft, no organomegaly Back: normal inspection, no CVA tenderness, no muscle spasm, normal range of motion Extremities/Musculoskelatal: normal inspection, no calf tenderness, normal capillary refill, no pedal edema, normal range of motion 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 TECHNIQUE: 03/16/2017 COMPARISON: 05/23/2013. FINDINGS: Atherosclerosis of aortic arch. Cardiac silhouette top normal in size. Moderate left pneumothorax with a pleural separation measuring 26 mm. Minimal retrocardiac opacity at the left lung base. Right lung and pleural space essentially clear. Degenerative changes of the right acromioclavicular joint. Upper abdomen normal. IMPRESSION: 1. Moderate left pneumothorax with left basilar atelectasis. Impression Assessment and Plan 71 yo male here for bronchoscopy with biopsy of pulmonary nodule, developed post procedural pneumothorax on the left - Left sided pneumothorax: high flow oxygen for next [address] in the morning, Dr. Kemp will decide on small needle chest tube hold Brilinta and aspirin in anticipation of possible intervention - Pulmonary nodule: s/p biopsy today, Dr. Kemp will notify of the results - Dyslipidemia: statin therapy - HTN: BP stable, continue home medications Level of Care Telemetry Advanced Directives Existing Living Will: No Existing Power of Medical Reimbursement Manager: No Resuscitation Status FULL RESUSCITATION VTE Prophylaxis VTE Risk Assessment Done? Y/N: Yes Risk Level: Low Given or contraindicated: Other Anticoagulation
[2017-03-17] VITALS (10 sets, daily range): BP systolic 93–125; BP diastolic 60–81; PULSE 63–95; TEMP 36.6–37.2; O2SAT 92–100
[2017-03-17 06:58] LABS: BASO % 0.1 %; BASO ABS # 0.01 K/uL (0-0.2); COMPLETE YES; HEMATOCRIT 40.2 % (42-52); IG% 0.2 %; LYMPH % 8.3 %; LYMPH ABS # 0.76 K/uL (1.2-3.4); MEAN CELL VOLUME 91.8 fL (80-100); MEAN CORPUSCULAR HEMOGLOBIN 31.5 pg (25-34); MEAN CORPUSCULAR HGB CONC 34.3 g/dl (32-36); MEAN PLATELET VOLUME 9.4 fL (7.4-10.4); MONO % 6.4 %; PLATELET COUNT 254 K/uL (130-400); RED BLOOD COUNT 4.38 M/uL (4.7-6.1); WHITE BLOOD COUNT 9.16 K/uL (4.8-10.8)
[2017-03-17 07:17] LABS: BUN/CREATININE RATIO 14.1 (10-20); CALCIUM 8.5 mg/dl (8.5-10.1); CREATININE 0.68 mg/dl (0.60-1.40); POTASSIUM 3.9 mmol/L (3.5-5.1)
[2017-03-17] MEDS: CHOLECALCIFEROL 1000 INTER.UNIT TAB PO SCH (07:34)
[2017-03-17] MEDS: CALCIUM 600MG + VIT D 400 IU TAB PO SCH (07:34)
[2017-03-17] MEDS: TOCOPHERYL, DL-ALPHA 400 INTER.UNIT CAP PO SCH (07:34)
[2017-03-17] MEDS: ATORVASTATIN 20 MG TAB PO SCH (07:34)
[2017-03-17] MEDS: RANITIDINE HCL 150 MG TAB PO SCH ×2 (07:34→20:10)
[2017-03-17] MEDS: ASCORBIC ACID 500 MG TAB PO SCH (07:34)
[2017-03-17] MEDS: METOPROLOL TARTRATE 25 MG TAB PO SCH ×2 (07:34→20:11)
--- NOTE | 2017-03-17 07:34 | Progress Note ---
Subjective Date of Service: Mar 17, 2017. Subjective pt feels slight left sided discomfort and mild BOWENS, DR tang has placed arrow cath to decompress the pneumothorax, will re evaluate in the PM Review of Systems Constitutional: No fever, No chills, No weakness Respiratory: + dyspnea on exertion, No cough, No shortness of breath Cardiac: + chest pain, No orthopnea, No PND, No edema Abdomen: No pain, No nausea, No vomiting, No diarrhea Psychiatric: No depression symptoms, No anhedonism Objective Vital Signs Date Time Temp Pulse Resp B/P (MAP) Pulse Ox O2 Delivery O2 Flow Rate FiO2 03/17/17 04:00 100 Oxymask 15.0 03/17/17 03:35 37.0 95 20 119/81 (94) 98 Free Flow/Blowby 15.0 03/17/17 00:01 100 Oxymask 15.0 03/16/17 23:07 37.0 101 22 115/87 (96) 98 Free Flow/Blowby 15.0 03/16/17 20:00 100 Oxymask 15.0 03/16/17 18:25 36.5 94 18 151/80 100 Mask 15.0 100 03/16/17 18:00 36.7 83 20 143/72 100 Room Air 15 Oxymask 03/16/17 17:15 36.5 66 20 143/72 94 Room Air 03/16/17 16:45 36.5 73 20 139/63 93 Room Air 03/16/17 16:16 36.5 66 20 97/66 93 Room Air 03/16/17 16:15 36.1 61 20 118/67 93 Room Air 03/16/17 16:05 58 18 122/77 95 Room Air 03/16/17 15:55 69 20 129/77 93 Room Air 03/16/17 15:45 71 16 122/84 98 Oxymask 10 03/16/17 15:36 36.0 79 18 135/75 96 Oxymask 10 03/16/17 11:50 36.7 77 17 122/67 (85) 97 Room Air Physical Exam General Appearance: WD/WN, + mild distress Eyes: normal inspection, sclerae normal Extremities: normal range of motion, normal inspection Neurologic/Psychiatric: alert, oriented x 3 Skin: normal color, warm/dry Laboratory Results Last 24 Hours Test 03/17/17 06:10 White Blood Count 9.16 K/uL Red Blood Count 4.38 M/uL Hemoglobin 13.8 g/dL Hematocrit 40.2 % Mean Corpuscular Volume 91.8 fL Mean Corpuscular Hemoglobin 31.5 pg Mean Corpuscular Hemoglobin Concent 34.3 g/dl Platelet Count 254 K/uL Mean Platelet Volume 9.4 fL Neutrophils (%) (Auto) 85.0 % Lymphocytes (%) (Auto) 8.3 % Monocytes (%) (Auto) 6.4 % Eosinophils (%) (Auto) 0.0 % Basophils (%) (Auto) 0.1 % Neutrophils # (Auto) 7.78 K/uL Lymphocytes # (Auto) 0.76 K/uL Monocytes # (Auto) 0.59 K/uL Eosinophils # (Auto) 0.00 K/uL Basophils # (Auto) 0.01 K/uL RDW Standard Deviation 46.0 fL RDW Coefficient of Variation 13.7 % Immature Granulocyte % (Auto) 0.2 % Immature Granulocyte # (Auto) 0.02 K/uL Sodium Level 138 mmol/L Potassium Level 3.9 mmol/L Chloride Level 107 mmol/L Carbon Dioxide Level 24 mmol/L Anion Gap 8.0 mmol/L Blood Urea Nitrogen 10 mg/dl Creatinine 0.68 mg/dl Est Creatinine Clear Calc Drug Dose 118.9 ml/min Estimated GFR () 112.9 Estimated GFR (Non- 97.4 BUN/Creatinine Ratio 14.1 Random Glucose 94 mg/dl Calcium Level 8.5 mg/dl Magnesium Level 2.0 mg/dl Assessment and Plan (1) Pneumothorax after biopsy Assessment & Plan: Pt developed chest pain post bronchoscopy and biopsy, cxr revealed pneumothorax, Dr Tang recommended high flow oxygen and did decompression with catheter on 03/17, will re evaluate to determine need to cath removal in the PM of 03/[address] Tang (2) Pulmonary nodule Assessment & Plan: pulmonary nodule was biopsied, pathology is pending (3) CAD (coronary artery disease) Assessment & Plan: Pt was on pre procedure brillinta, this was held, metoprolol lipitor will be continued no current unstable angina Problem Qualifiers (1) CAD (coronary artery disease): [place] vs. transplanted heart: [place] heart Associated angina: without angina
[2017-03-17] MEDS ORDERED: NON-FORMULARY MEDICATION (Coenzyme Q10 (Ubidecarenone) (Coq10) 1 CAP) PO SCH (09:00)
--- NOTE | 2017-03-17 10:01 | DIAGNOSTIC IMAGING REPORT ---
(CHEST) THORAX WITHOUT CT DOSE: 486.43 mGy.cm HISTORY: Evaluation pneumothorax TECHNIQUE: Multiaxial CT images of the chest were performed without contrast. A dose lowering technique was utilized adhering to the principles of ALARA. COMPARISON: Chest CT 02/15/2017. FINDINGS: There is a moderate to large left pneumothorax of approximately 50%. The lingular consolidation has significantly decreased in size and is now linear. Therefore, this favors atelectasis rather than a mass. There is focal consolidation seen within the mid aspect of the left lower lobe. Trace left pleural fluid. Mild emphysema. The central airways are patent. There is no significant mediastinal shift. Stable 5 mm fissural nodule along the right minor fissure on image 180. Otherwise, the right lung is essentially clear. No suspicious lytic or blastic osseous lesions. No mediastinal or hilar lymphadenopathy. Tortuous descending thoracic aorta. Bilateral renal hypodense lesions are again noted and likely represent cysts. The unenhanced visualized liver, spleen, and adrenal glands are unremarkable. The heart is normal in size. No pericardial effusion. Stable mild aneurysmal dilatation of the ascending thoracic aorta measuring up to 4.6 cm in diameter. IMPRESSION: 1. Moderate to large left pneumothorax with a volume of approximately 50%. 2. Near complete resolution of the lingular density which is now linear in configuration. Therefore, this likely represented a focus of an infectious change or atelectasis. 3. A new focal consolidation within the left lower lobe which may represent atelectasis or pneumonia. 4. Stable mild aneurysmal dilatation of the ascending thoracic aorta measuring 4.6 cm in diameter. 5. These findings were discussed with Dr. Kemp at 9:55 AM on 03/17/2017. Electronically signed by: Milo Sahni M.D. 03/17/2017 10:00 AM Dictated Date/Time: 03/17/2017 9:48 AM
[2017-03-17] MEDS ORDERED: KETOROLAC TROMETHAMINE 15 MG/ML VIAL ONE (11:20)
--- NOTE | 2017-03-17 11:29 | Pulmonology Progress Note ---
Pulmonary Progress Note Date of Service Mar 17, 2017. Attending Dr. Kemp Subjective The patient is doing well today denies any shortness of breath and or pleurisy. Objective Patient is able sit up in bed complete full sentences ambulate throughout the room with no signs of respiratory insufficiency Vital signs: Stable on oxygen supplementation at 15 liters Respiratory: Clear to auscultation right hemithorax decreased breath sounds globally on the left hemithorax Ultrasound: Shows notable pneumothorax there is an area of adhesion or the lung point approximately long-term down mid axillary line on the left hemithorax Cardiac: S1-S2 distant heart sounds but regular rate and rhythm Abdomen: Soft nontender positive bowel sounds a 6 line extremities: No clubbing cyanosis or edema Assessment & Plan 71-year-old gentleman with postprocedural pneumothorax left hemithorax: 1. Pneumothorax: Patient has at least 50% pneumothorax at this time based off chest x-ray, ultrasound and CT. The CT also shows area of consolidation/ atelectasis in the right lower lobe. At this time will place chest tube to help with re-expansion of the lung. 2. Id: Patient is now undergoing 2 procedures and shows atelectasis of the left lower lobe. Will start on Augmentin 875/125 (BID) for 10 day window. Data Medications: Current Inpatient Medications Medications (Trade) Dose Ordered Sig/Eloina Route Start Time Stop Time Status Last Admin Dose Admin Acetaminophen (Tylenol Tab) 650 mg Q4H PRN PO 03/16/17 17:30 04/15/17 17:29 Ondansetron HCl (Zofran Inj) 4 mg Q6H PRN IV 03/16/17 17:30 04/15/17 17:29 Atorvastatin Calcium (Lipitor Tab) 80 mg QAM PO 03/17/17 09:00 04/16/17 08:59 03/17/17 07:34 80 MG Cholecalciferol (Vitamin D Tab) 1,000 inter.unit QAM PO 03/17/17 09:00 04/16/17 08:59 03/17/17 07:34 1,000 INTER.UNIT Metoprolol Tartrate (Lopressor Tab) 12.5 mg BID PO 03/16/17 21:00 04/15/17 20:59 03/17/17 07:34 12.5 MG Pantoprazole Sodium (Protonix Tab) 40 mg QPM PO 03/16/17 21:00 04/15/17 20:59 03/16/17 21:42 40 MG Ranitidine HCl (zANTac TAB) 150 mg BID PO 03/16/17 21:00 04/15/17 20:59 03/17/17 07:34 150 MG Tramadol HCl (Ultram Tab) 50 mg Q4H PRN PO 03/16/17 17:45 04/15/17 17:44 03/17/17 02:06 50 MG [id number] Acetate (Vitamin E Cap) 400 interunit QAM PO 03/17/17 09:00 04/16/17 08:59 03/17/17 07:34 400 INTERUNIT Ascorbic Acid (Vitamin C Tab) 500 mg QAM PO 03/17/17 09:00 04/16/17 08:59 03/17/17 07:34 500 MG Calcium/Vitamin D (Caltrate Plus Tab) 1 tab QAM PO 03/17/17 09:00 04/16/17 08:59 03/17/17 07:34 1 TAB Miscellaneous (Iv Fluids Completed) 1 ea PRN PRN N/A 03/16/17 20:30 03/16/18 20:29 Vital Signs: Date Time Temp Pulse Resp B/P (MAP) Pulse Ox O2 Delivery O2 Flow Rate FiO2 03/17/17 08:11 37.2 90 24 125/67 (86) 96 4.0 03/17/17 08:03 96 Nasal Cannula 3.0 03/17/17 04:00 100 Oxymask 15.0 03/17/17 03:35 37.0 95 20 119/81 (94) 98 Free Flow/Blowby 15.0 03/17/17 00:01 100 Oxymask 15.0 03/16/17 23:07 37.0 101 22 115/87 (96) 98 Free Flow/Blowby 15.0 03/16/17 20:00 100 Oxymask 15.0 03/16/17 18:25 36.5 94 18 151/80 100 Mask 15.0 100 03/16/17 18:00 36.7 83 20 143/72 100 Room Air 15 Oxymask 03/16/17 17:15 36.5 66 20 143/72 94 Room Air 03/16/17 16:45 36.5 73 20 139/63 93 Room Air 03/16/17 16:16 36.5 66 20 97/66 93 Room Air 03/16/17 16:15 36.1 61 20 118/67 93 Room Air 03/16/17 16:05 58 18 122/77 95 Room Air 03/16/17 15:55 69 20 129/77 93 Room Air 03/16/17 15:45 71 16 122/84 98 Oxymask 10 03/16/17 15:36 36.0 79 18 135/75 96 Oxymask 10 03/16/17 11:50 36.7 77 17 122/67 (85) 97 Room Air Laboratory Results: Last 24 Hours Test 03/17/17 06:10 White Blood Count 9.16 K/uL Red Blood Count 4.38 M/uL Hemoglobin 13.8 g/dL Hematocrit 40.2 % Mean Corpuscular Volume 91.8 fL Mean Corpuscular Hemoglobin 31.5 pg Mean Corpuscular Hemoglobin Concent 34.3 g/dl Platelet Count 254 K/uL Mean Platelet Volume 9.4 fL Neutrophils (%) (Auto) 85.0 % Lymphocytes (%) (Auto) 8.3 % Monocytes (%) (Auto) 6.4 % Eosinophils (%) (Auto) 0.0 % Basophils (%) (Auto) 0.1 % Neutrophils # (Auto) 7.78 K/uL Lymphocytes # (Auto) 0.76 K/uL Monocytes # (Auto) 0.59 K/uL Eosinophils # (Auto) 0.00 K/uL Basophils # (Auto) 0.01 K/uL RDW Standard Deviation 46.0 fL RDW Coefficient of Variation 13.7 % Immature Granulocyte % (Auto) 0.2 % Immature Granulocyte # (Auto) 0.02 K/uL Sodium Level 138 mmol/L Potassium Level 3.9 mmol/L Chloride Level 107 mmol/L Carbon Dioxide Level 24 mmol/L Anion Gap 8.0 mmol/L Blood Urea Nitrogen 10 mg/dl Creatinine 0.68 mg/dl Est Creatinine Clear Calc Drug Dose 118.9 ml/min Estimated GFR () 112.9 Estimated GFR (Non- 97.4 BUN/Creatinine Ratio 14.1 Random Glucose 94 mg/dl Calcium Level 8.5 mg/dl Magnesium Level 2.0 mg/dl
--- NOTE | 2017-03-17 11:32 | Procedure Note ---
Procedure Note Date of Service Mar 17, 2017. Procedure Note Procedures: Left sided chest tube Consent: obtained via the patient and placed into the chart Pre-Procedural Dx: Left-sided pneumothorax Post-Procedural Dx: Left-sided pneumothorax Analgesia: 8cc of 1% Liquid Lidocaine Procedure: The patient was placed in an upright position add a 60 degree angle. Patient was draped and prepped in a sterile fashion. Following this a modified Seldinger technique was used for access into the thoracic cavity. An 8 Haitian arrow percutaneous chest tube catheter was used for this procedure. Slid easily into position there was good breath sounds. This was then hooked up to a Heimlich valve. The patient noted minimal discomfort. At this time will monitor the patient repeating chest x-ray in a 2 hour window. If the x-ray notes expansion of the lung at that time will clamp the chest tube and follow- up in on hour window looking for possible return of the patient's pneumothorax. At that time will decide whether to remove the chest tube. EBL: None Complications: None
[2017-03-17] MEDS ORDERED: KETOROLAC TROMETHAMINE 15 MG/ML VIAL IV. STA (11:54)
[2017-03-17] MEDS ORDERED: KETOROLAC TROMETHAMINE 15 MG/ML VIAL IM PRN (12:00)
--- NOTE | 2017-03-17 15:03 | DIAGNOSTIC IMAGING REPORT ---
CHEST ONE VIEW PORTABLE HISTORY: Post biopsy pneumothorax. Follow-up. COMPARISON: Chest 03/16/2017. Chest CT 03/17/2017. FINDINGS: Interval placement of a left upper lung zone pleural catheter. Only the distal 2 cm of the catheter is within the pleural space. This is not well looped. However, the left-sided pneumothorax has essentially resolved in the interval. Left lower lobe airspace opacities persist. The heart is normal in size. The right lung is clear. IMPRESSION: Interval placement of a left upper lung zone pleural catheter. Only the distal 2 cm of the catheter is within the pleural space. This is not well looped. However, the left-sided pneumothorax has essentially resolved in the interval. Electronically signed by: Milo Sahni M.D. 03/17/2017 3:01 PM Dictated Date/Time: 03/17/2017 2:59 PM
[2017-03-17] MEDS: AMOXICILLIN/CLAVULANATE TAB 875 MG TAB PO SCH (20:10)
[2017-03-17] MEDS: PANTOprazole SOD 40 MG TAB PO SCH (20:10)
[2017-03-18 00:01] VITALS: O2SAT 100
[2017-03-18 03:23] VITALS: BP 127/74; PULSE 75; TEMP 36.6; O2SAT 94
[2017-03-18 04:00] VITALS: O2SAT 100
--- NOTE | 2017-03-18 05:23 | DIAGNOSTIC IMAGING REPORT ---
CHEST ONE VIEW PORTABLE CLINICAL HISTORY: 71 years-old Male presenting with Bleeding from chest tube. TECHNIQUE: Portable upright AP view of the chest was obtained. COMPARISON: 03/17/2017. FINDINGS: The left pleural drain is now fully retracted outside of the left pleural cavity. Multiple overlying external leads degrade image quality. Atherosclerosis of aortic arch. Cardiac silhouette mildly enlarged. Left lower lung nodular opacity measuring 2.8 cm. No new focal infiltrate. No residual pneumothorax. No large pleural effusion. Degenerative changes of the left glenohumeral joint. Subcutaneous emphysema overlies the upper left chest. Upper abdomen normal. IMPRESSION: 1. No pneumothorax. The left pleural catheter is now fully outside of the left pleural cavity. Repositioning or replacement recommended. 2. Nodular opacity in the left lower lung. Pneumonia cannot be excluded. Please see separately dictated CT chest from earlier the same day. Electronically signed by: Jin De La Rosa M.D. 03/18/2017 5:22 AM Dictated Date/Time: 03/18/2017 5:19 AM
--- NOTE | 2017-03-18 07:16 | DIAGNOSTIC IMAGING REPORT ---
CHEST ONE VIEW PORTABLE CLINICAL HISTORY: 71 years-old Male presenting with S/p ct removal. TECHNIQUE: Portable upright AP view of the chest was obtained. COMPARISON: 03/17/2017. FINDINGS: The malpositioned left pleural drain has been removed. Cardiac mediastinal silhouette normal apart from added retrocardiac density, either left atrial enlargement or hiatal hernia. Persistent nodular opacity at the left lung base. A central lucency is suggested. No new focal infiltrate. No large effusion or pneumothorax. Osseous structures normal. Upper abdomen normal. IMPRESSION: 1. Status post removal of the left pleural drain. 2. Possibly cavitary nodular opacity at the left lung base. This likely correlates to the lingular consolidation on CT from 02/15/2017. Neoplasm cannot be excluded. Electronically signed by: Jin De La Rosa M.D. 03/18/2017 7:14 AM Dictated Date/Time: 03/18/2017 7:12 AM
[2017-03-18] MEDS: ATORVASTATIN 20 MG TAB PO SCH (07:55)
[2017-03-18] MEDS: CALCIUM 600MG + VIT D 400 IU TAB PO SCH (07:55)
[2017-03-18] MEDS: RANITIDINE HCL 150 MG TAB PO SCH (07:56)
[2017-03-18] MEDS: ASCORBIC ACID 500 MG TAB PO SCH (07:56)
[2017-03-18] MEDS: METOPROLOL TARTRATE 25 MG TAB PO SCH (07:57)
[2017-03-18] MEDS: AMOXICILLIN/CLAVULANATE TAB 875 MG TAB PO SCH (07:58)
[2017-03-18] MEDS: CHOLECALCIFEROL 1000 INTER.UNIT TAB PO SCH (07:58)
[2017-03-18] MEDS: TOCOPHERYL, DL-ALPHA 400 INTER.UNIT CAP PO SCH (07:59)
[2017-03-18 08:00] VITALS: O2SAT 100
[2017-03-18 08:11] VITALS: BP 130/76; PULSE 87; TEMP 37.2; O2SAT 91
[2017-03-18] MEDS ORDERED: AMOX1TAB43 PO (09:42)
--- NOTE | 2017-03-18 09:43 | Discharge Instructions ---
Discharge Instructions Date of Service Mar 18, 2017. Admission Reason for Admission: Pulmonary Nodule, Pneumothorax After Biopsy Discharge Discharge Diagnosis / Problem: left sided pneumothorax, s/p decompression Discharge Goals Goal(s): Diagnostic testing, Therapeutic intervention Activity Recommendations Activity Limitations: as noted below Lifting Limitations: gradually increase as tolerated . Current Hospital Diet Patient's current hospital diet: Regular Diet Discharge Diet Recommended Diet: Regular Diet Procedures Procedures Performed: Endobronchial Ultrasound Guided Bronchoscopy and Electromagnetic Navigational Bronchoscopy, fine needle aspiration, cytology brushing, bronchial washing Pending Studies Studies pending at discharge: yes (p) List of pending studies: pathology of biopsy Laboratory Results Lipid Panel Test 02/01/17 08:40 Range/Units Triglycerides Level 92 0-150 mg/dl Cholesterol Level 108 0-200 mg/dl HDL Cholesterol 49 mg/dl Cholesterol/HDL Ratio 2.2 LDL Cholesterol, Calculated 41 mg/dl Medical Emergencies . Who to Call and When: Medical Emergencies: If at any time you feel your situation is an emergency, please call 911 immediately. . Non-Emergent Contact Non-Emergency issues call your: Construction Scheduler Call Non-Emergent contact if: temperature is above 101, your pain is unusual for you . . "Provider Documentation" section prepared by Arnaldo Bonilla. . VTE Core Measure Inpt VTE Proph given/why not?: Other Anticoagulation
[2017-03-18 10:24] VITALS: BP 130/76; PULSE 87; TEMP 37.2; O2SAT 91
--- NOTE | 2017-03-18 11:12 | Discharge Summary ---
Discharge Summary Date of Service Mar 18, 2017. Discharge Summary Admission Date: Mar 16, 2017 at 17:29 Discharge Date: Mar 16, 2017 Discharge Disposition: Home Principal Diagnosis: pneumothoerax after lung biopsy Immunizations: Have You Had Influenza Vaccine: Yes Influenza Vaccine Date: Dec 06, 2012 History of Tetanus Vaccine?: Yes Tetanus Immunization Date: Jun 05, 2010 History of Pneumococcal: Yes Pneumococcal Date: Dec 06, 2012 History of Hepatitis B Vaccine: No Procedures: catheter drainage of pneumothorax by Dr Kemp Medication Reconciliation New Medications: Amoxicillin & Pot Clavulanate (Amoxicillin/Clavulanate P) 1 Tab Tab 875 MG PO BID, #18 TAB Continued Medications: Acetaminophen (Tylenol) 500 Mg Tab 1000 MG PO PRN, TAB Aspirin (Aspirin Chewable) 81 Mg Chew 81 MG PO QAM PER SPOUSE-WILL CONTINUE TAKING BEFORE SURG PER THEIR INSTRUCTIONS Atorvastatin (Lipitor) 80 Mg Tab 80 MG PO QAM, TAB Bioflavonoid Products (Shelia-C) 1 Tab Tab 500 MG PO QAM Calcium Carbonate-Vitamin D (Oscal 500/200 D-3) 1 Tab Tab 1 TAB PO QAM Cholecalciferol (Vitamin D3) 1,000 Unit Tab 1 TAB PO QAM for 90 Days, #90 TAB 3 Refills Coenzyme Q10 (Ubidecarenone) (Coq10) 100 Mg Cap 1 CAP PO QAM Metoprolol Tartrate (Lopressor) (Lopressor) 25 Mg Tab 12.5 MG PO BID, TAB Multiple Vitamin (Multivitamin) 1 Tab Tab 1 TAB PO QAM, TAB Pantoprazole (Protonix) 40 Mg Tab 40 MG PO QPM, #30 TAB Ranitidine (Zantac) 150 Mg Tab 150 MG PO BID, TAB Ticagrelor (Brilinta) 90 Mg Tab 1 TAB PO BID PER SPOUSE-INSTRUCTED TO TAKE LAST DOSE 03/12/17 AM AND HOLD Tramadol (Ultram) 50 Mg Tab 50 MG PO Q4H PRN for Pain, TAB Vitamin E (Alph-E) 400 Unit Cap 400 UNITS PO QAM Discontinued Medications: Amoxicillin (Amoxil) 500 Mg Cap 4 CAP PO DAILY, #21 CAP TAKE BEFORE DENTAL/INVASIVE PROCEDURES Discharge Exam Review of Systems: Constitutional: No fever, No chills Respiratory: No cough, No sputum, No shortness of breath, No dyspnea on exertion Cardiovascular: No chest pain, No orthopnea, No edema Physical Exam: General Appearance: WD/WN, no apparent distress Eyes: normal inspection, sclerae normal Respiratory/Chest: + decreased breath sounds (left base) Cardiovascular: regular rate, rhythm, no murmur Neurologic/Psychiatric: alert, oriented x 3 Hospital Course (1) Pneumothorax after biopsy (2) Pulmonary nodule (3) CAD (coronary artery disease) 71 M developed pneumothorax after bronchoscopic lung biopsy of left lung nodule , was followed and with pneumothorax size it was decompressed via a catheter by Dr Kemp on 03/17, the catheter removed 03/17 pm, review of cxr and clincal evaluation 03/18 was stable, CXR shows resolution and no re accumulation of air, pt was discharged to complete additional 9 days of augmentin. Follow up with Dr Kemp Total Time Spent: Greater than 30 minutes This includes examination of the patient, discharge planning, medication reconciliation, and communication with other providers. Discharge Instructions Please refer to the electronic Patient Visit Report (Discharge Instructions) for additional information. Problem Qualifiers (1) CAD (coronary artery disease): [place] vs. transplanted heart: [place] heart Associated angina: without angina
--- NOTE | 2017-03-18 13:45 | Pulmonology Progress Note ---
Pulmonary Progress Note Date of Service Mar 18, 2017. Attending Dr. Kemp Subjective Patient with minimal pleurisy only on deep inspiration Objective Patient is able sit up in bed complete full sentences ambulate throughout the room with no signs of respiratory insufficiency Vital signs: Stable on room air Respiratory: Clear to auscultation bilaterally with good breath sounds in the left apices Cardiac: S1-S2 distant heart sounds but regular rate and rhythm Abdomen: Soft nontender positive bowel sounds a 6 line extremities: No clubbing cyanosis or edema Assessment & Plan 71-year-old gentleman with postprocedural pneumothorax left hemithorax: 1. Pneumothorax: Small a Ukrainian chest tube removed last night and notable continued re-expansion of the lung at this time. Patient could be discharged home 2. ID: Patient underwent 2 procedures as well as has a left lower lobe continued infiltrate. Possible secondary to procedural trauma but will continue on Augmentin for total of 10 days. Discharge: Patient is stable for discharge at this time Follow-up: Patient is to follow up with provider Nallely Arroyo on 03/20/2017 with pre clinical evaluation/chest x-ray. Data Vital Signs: Date Time Temp Pulse Resp B/P (MAP) Pulse Ox O2 Delivery O2 Flow Rate FiO2 03/18/17 10:24 37.2 87 16 91 Room Air Mask 03/18/17 08:11 37.2 87 16 130/76 (94) 91 Room Air 03/18/17 08:00 100 Room Air 03/18/17 04:00 100 Room Air 03/18/17 03:23 36.6 75 18 127/74 (91) 94 Room Air 03/18/17 00:01 100 Room Air 03/17/17 23:30 36.9 67 19 119/67 (84) 94 Room Air 03/17/17 20:00 100 Room Air 03/17/17 19:00 36.9 75 18 109/60 (76) 92 Room Air 03/17/17 16:03 Room Air 03/17/17 15:24 37.1 65 18 93/61 (72) 95 Room Air
--- NOTE | 2017-04-02 17:31 | Bronchoscopy Procedure Note ---
Bronchoscopy Procedure Note Procedure: Flexible-Bronchoscopy, EBUS, ENB, FNA, Tbbx, Cytology Brushing, BAL Consent: Obtained through the patient placed into the chart Pre-Procedural Dx: Lingular nodule Post-Procedural Dx: Lingular nodule Analgesia: GETA Sedation: GETA Procedure: The Olympus video bronchoscope and EBUS scope were used for this procedure Initially the flexible bronchoscope was used for evaluation of the airways. Trachea: Visualized portion of the trachea was anatomically within normal limits Scarlett: Anatomically within normal limits Right bronchial tree: Right mainstem bronchus: Anatomically within normal limits Right upper lobe: Anatomically within normal limits Bronchus intermedius: Anatomically within normal limits Right middle lobe: Anatomically within normal limits Right lower lobe: Anatomically within normal limits Findings: No significant findings noted Left bronchial tree: Left mainstem bronchus: Anatomically within normal limits Left upper lobe: Anatomically within normal limits Lingula: Anatomically within normal limits Left lower lobe: Anatomically within normal limits Findings: No significant findings noted EBUS/CLAUDIO: Tbbx [place] Stations: 7: # of passes 3 4R: # of passes 3 ENB Lingular Nodule: FNA, Cytology Brushing, Tbbx, BAL EBL: Complications: PTX Follow-up: [facility]
[2017-04-03] MEDS ORDERED: FLM4 PO (17:43)
== END 2017-03-18 11:01 | disposition home or self-care (01) ==
LOC: C.ACU 11:12 → C.2E 17:29 → ENRESERV 17:58
PROVIDERS: ADMIT Internal Medicine; ATTEND Internal Medicine
DX: J95.811 Postprocedural pneumothorax (principal); R91.1 Solitary pulmonary nodule; I25.10 Atherosclerotic heart disease of native coronary artery without angina pectoris; Z87.891 Personal history of nicotine dependence; I10 Essential (primary) hypertension; E78.5 Hyperlipidemia, unspecified; M85.80 Other specified disorders of bone density and structure, unspecified site; M17.10 Unilateral primary osteoarthritis, unspecified knee; I87.2 Venous insufficiency (chronic) (peripheral); Z79.82 Long term (current) use of aspirin; Z79.899 Other long term (current) drug therapy; I25.2 Old myocardial infarction

== ENCOUNTER → 2017-03-20 | Outpatient (CLI) | payer OTHER, BC ==
[~2017-03-20] MED LIST changes: +AMOX1TAB43 PO; -AMOX500C3 PO; -ATROPINE SULFATE 0.1 MG/ML 5ML SYR IV PRN; -EpHEDrine SULFATE INJ 50 MG/ML AMP IV PRN; -FENTANYL CITRATE INJ 50 MCG/1 ML 2 ML VIAL IV PRN; -KETOROLAC TROMETHAMINE 15 MG/ML VIAL IV. PRN; -LACTATED RINGER'S 1000ML 1,000 ML IV SCH; -ONDANSETRON INJ 2 MG/ML 2 ML VIAL IV PRN
--- NOTE | 2017-03-20 16:41 | DIAGNOSTIC IMAGING REPORT ---
(CHEST) THORAX WITHOUT CT DOSE: 547.16 mGy.cm CLINICAL HISTORY: 71 years-old Male with HIGH RESOLUTION,HEMOPTYSIS,PNEUMO THORAX. Follow-up study to assess left-sided pneumothorax. TECHNIQUE: Multiaxial CT images of the chest were performed without contrast. A dose lowering technique was utilized adhering to the principles of ALARA. COMPARISON: CT chest 03/17/2017, PET CT 03/14/2017, CTA of the chest 05/23/2013. FINDINGS: No dominant thyroid nodule identified. Deep tissue air is noted along the lateral left chest wall subpectoral and axillary distribution, likely from prior pleural catheter placement. Heart is upper limits of normal with coronary arterial calcifications. Mild fusiform dilation of the ascending thoracic aorta beginning distal to the sinotubular junction redemonstrated, 4.5 x 4.6 cm which is unchanged. There is mild atherosclerosis of the thoracic aorta. Mild tortuosity of the descending thoracic aorta. No pathologically enlarged lymph nodes of the chest identified by CT size criteria. There is resolution of the previously described moderate to large left pneumothorax. No residual pneumothorax identified. Mild to moderate upper lobe predominant centrilobular emphysema. 5 mm. Fissural lymph node is seen adjacent to the right middle lobe, image 176 series 4. Persistent focal masslike consolidation of the inferior segment lingula is noted, 3.6 x 3.2 cm. Pleural-based 6 mm nodule of the left lower lobe is seen on image 209 series 4, unchanged from 05/23/2013 suggesting benign etiology. Central airways are patent. No acute abnormality identified within the imaged upper abdomen. Largest cyst of the bilateral kidneys are noted, largest of which is within the interpolar right kidney, 7.1 cm. Largest in the left measures up to 6.5 cm. Soft tissues are otherwise unremarkable. IMPRESSION: 1. Resolution of the previously noted moderate to large left-sided pneumothorax. Mild amount of deep tissue air along the anterolateral chest wall, axillary and subpectoral distribution is likely from prior pleural drainage catheter. 2. Persistent focal consolidation of the inferior segment lingula which measures up to 3.6 cm. 3. Unchanged 6 mm nodule of the left lower lobe, stable from 05/23/2013 suggesting benign etiology. 4. Mild to moderate upper lobe predominant centrilobular emphysema. 5. 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 Electronically signed by: Sawyer Ferrari M.D. 03/20/2017 4:40 PM Dictated Date/Time: 03/20/2017 4:31 PM
== END | disposition home or self-care (01) ==
LOC: C.CTS 16:13
PROVIDERS: ATTEND Physician Assistant
DX: R04.2 Hemoptysis (principal); J93.9 Pneumothorax, unspecified; R91.8 Other nonspecific abnormal finding of lung field; R91.1 Solitary pulmonary nodule; J43.9 Emphysema, unspecified; I71.2 Thoracic aortic aneurysm, without rupture

== ENCOUNTER → 2017-04-04 | Day surgery (SDC) | payer OTHER, BC ==
[2017-04-03 17:43] VITALS: BMI 28.0
[~2017-04-04] VITALS: Ht 180.3 cm; Wt 93.0 kg
[~2017-04-04] MED LIST changes: +ACETAMINOPHEN 1000 MG/100 ML IV IV ONE; -AMOX1TAB43 PO; +ATROPINE SULFATE 0.1 MG/ML 5ML SYR IV PRN; +CLC100 PO; +EpHEDrine SULFATE INJ 50 MG/ML AMP IV PRN; +FENTANYL CITRATE INJ 50 MCG/1 ML 2 ML VIAL IV PRN; +FLM4 PO; +HYDROmorphone INJ 1 MG/ML SYR IV PRN; +LACTATED RINGER'S 1000ML 1,000 ML IV SCH; +MRLP17 PO; +ONDANSETRON INJ 2 MG/ML 2 ML VIAL IV PRN; +OXYC-57 PO; -TRAM-10 PO
[2017-04-04 10:18] VITALS: BP 118/76; PULSE 88; TEMP 36.5; O2SAT 97; Ht 180.3 cm; Wt 93.0 kg
== END ==
LOC: C.ACU 09:54
PROVIDERS: ATTEND Surgery
DX: C34.92 Malignant neoplasm of unspecified part of left bronchus or lung (principal); Z53.09 Procedure and treatment not carried out because of other contraindication

== ENCOUNTER → 2017-04-05 | Day surgery (SDC) | payer OTHER, BC ==
[~2017-04-05] VITALS: Ht 181.6 cm; Wt 93.0 kg
[~2017-04-05] MED LIST changes: -ACETAMINOPHEN 1000 MG/100 ML IV IV ONE; -ATROPINE SULFATE 0.1 MG/ML 5ML SYR IV PRN; -CLC100 PO; -EpHEDrine SULFATE INJ 50 MG/ML AMP IV PRN; -FENTANYL CITRATE INJ 50 MCG/1 ML 2 ML VIAL IV PRN; +FENTANYL CITRATE INJ 50 MCG/1 ML 2 ML VIAL ONE; -HYDROmorphone INJ 1 MG/ML SYR IV PRN; +MIDAZOLAM HCL 1 MG/ML 2ML VIAL ONE; -MRLP17 PO; -ONDANSETRON INJ 2 MG/ML 2 ML VIAL IV PRN; -OXYC-57 PO
[2017-04-05 06:38] VITALS: BP 124/80; PULSE 97; TEMP 36.8; Ht 181.6 cm; Wt 93.0 kg
--- NOTE | 2017-04-05 16:06 | Anesthesiology Progress Note ---
Anesthesia Progress Note Date of Service Apr 05, 2017. Progress Notes Patient's surgery has been cancelled after discussion with Dr Canseco and patient and family.Patient had several bouts of diarrhea and as a result is volume depleted.Patient may also have a GI virus or bacteremia.Case rescheduled by Dr Canseco.
== END | disposition home or self-care (01) ==
LOC: C.ACU 06:28
PROVIDERS: ATTEND Surgery
DX: R91.8 Other nonspecific abnormal finding of lung field (principal); R19.7 Diarrhea, unspecified; Z53.09 Procedure and treatment not carried out because of other contraindication

== ENCOUNTER 2017-04-09 08:51 | Inpatient (IN) | payer OTHER, BC ==
[2017-04-09] VITALS (13 sets, daily range): BP systolic 82–137; BP diastolic 50–85; PULSE 65–98; TEMP 36.3–36.8; O2SAT 93–100; Ht 181.6 cm; Wt 93.0 kg
[~2017-04-09] VITALS: Ht 181.6 cm; Wt 93.0 kg
[~2017-04-09 08:51] MED LIST changes: -FENTANYL CITRATE INJ 50 MCG/1 ML 2 ML VIAL ONE; -MIDAZOLAM HCL 1 MG/ML 2ML VIAL ONE
[2017-04-09] MEDS ORDERED: FENTANYL CITRATE INJ 50 MCG/1 ML 2 ML VIAL ONE ×2 (10:33→12:42)
[2017-04-09] MEDS ORDERED: BUPIVACAINE LIPOSOME 1/3% 266 MG/20 ML VIAL INFIL ONE (10:34)
[2017-04-09] MEDS ORDERED: SODIUM CHLORIDE 0.9% PF 50 ML VIAL ONE (10:34)
[2017-04-09] MEDS ORDERED: ONDANSETRON INJ 2 MG/ML 2 ML VIAL IV PRN ×2 (11:00→15:00)
[2017-04-09] MEDS ORDERED: ATROPINE SULFATE 0.1 MG/ML 5ML SYR IV PRN (11:00)
[2017-04-09] MEDS ORDERED: LABETALOL HCL IV 5 MG/ML 20ML IV PRN (11:00)
[2017-04-09] MEDS ORDERED: KETOROLAC TROMETHAMINE 15 MG/ML VIAL IV. PRN (11:00)
[2017-04-09] MEDS ORDERED: EpHEDrine SULFATE 50MG/5ML SYR ONE (12:40)
[2017-04-09] MEDS ORDERED: ONDANSETRON INJ 2 MG/ML 2 ML VIAL ONE (12:40)
[2017-04-09] MEDS ORDERED: ROCURONIUM BROMIDE 10 MG/ML 5 ML VIAL IV ONE (12:40)
[2017-04-09] MEDS ORDERED: LIDOCAINE HCL 2% 2 ML VIAL (20MG/ML) ONE (12:40)
[2017-04-09] MEDS ORDERED: DEXAMETHASONE SOD INJ 4 MG/ML VIAL ONE (12:40)
[2017-04-09] MEDS ORDERED: PROPOFOL IV EMULSION 10 MG/ML 20 ML VIAL IV ONE (12:40)
[2017-04-09] MEDS ORDERED: PHENYLEPHRINE 100MCG/ML 5ML SYR ONE (12:40)
--- NOTE | 2017-04-09 14:43 | [facility] Post Operative Brief Note ---
Immediate Operative Summary Operative Date Apr 09, 2017. Pre-Operative Diagnosis Left Lingular Lung Lesion Post-Operative Diagnosis Adenocarcinoma of Left Lingula Procedure(s) Performed Robot assisted wedge resection lingula Robot assisted lefy upper lobectomy Mediastinal lymphadenectomy Surgeon Dr. Jhon Canseco Core Mounter Surgeon(s) Alejandro Ruelas PA-C Estimated Blood Loss 100 cc's Findings Frozen section shows adenocarcinoma. Uncomplicated lobectomy. Specimens Frozen Section: 1. Wedge resection of Left Lingula 2. Left upper lobe Fresh Specimens: A. L9 Lymph node B. L8 Lymph node C. Level 5 Lymph node D. L12 Lymph Node x 2 E. L11 Lymph Node F. Level 6 Lymph Node G. L10 Lymph Node Drains 24 fr. left chest tube Complication(s) None Disposition Recovery Room / PACU
[2017-04-09] MEDS ORDERED: KETOROLAC TROMETHAMINE 30 MG/ML VIAL ONE (15:12)
[2017-04-09] MEDS: HYDROmorphone INJ 2 MG/ML SYR/VIAL IV PRN ×2 (15:15→15:20)
--- NOTE | 2017-04-09 15:28 | DIAGNOSTIC IMAGING REPORT ---
CHEST ONE VIEW PORTABLE CLINICAL HISTORY: KATELYN COMPARISON STUDY: Chest CT March 20, 2017. FINDINGS: A left apical chest tube is in place. A small left pneumothorax with pleural separation of 7 mm is noted. Linear right basilar opacity suggests atelectasis. There is mild right perihilar opacity. Mild cardiomegaly is noted without evidence for pulmonary edema. IMPRESSION: Small left pneumothorax with left chest tube in place. Electronically signed by: Kwame Chaves M.D. 04/09/2017 3:26 PM Dictated Date/Time: 04/09/2017 3:16 PM
--- NOTE | 2017-04-09 15:32 | OPERATIVE REPORT ---
DATE OF OPERATION: 04/09/2017 PREOPERATIVE DIAGNOSIS: Mass in the lingula of left upper lobe. POSTOPERATIVE DIAGNOSIS: Adenocarcinoma lingula, left upper lobe. PROCEDURE: 1. Robot-assisted left thoracoscopic wedge resection of lingula. 2. Robot-assisted thoracoscopic left upper lobectomy. 3. Robot-assisted thoracoscopic mediastinal lymphadenectomy. SURGEON: Dr. Canseco. CLAY HOUSE WORKER: NAZARIO Chan (Mr. Cartwright was present for the case and was at the bedside while I was at the console. He closed the incisions at the conclusion of the case also. ANESTHESIA: General anesthesia with endotracheal intubation using double lumen tube. SPECIFICS OF PROCEDURE AND FINDINGS: Mr. Stone is a 71-year-old male who was found to have a mass in the lingula of his left upper lobe. He really did not have symptoms from this. When he underwent a navigational bronchoscopy, there were suspicious cells, but his mediastinum was found to be free of tumor. We had a long discussion in the office and the patient and his and I decided that we would proceed with a robot-assisted attempted a segmentectomy. He has actually canceled twice last week, once because overrun in the operating room and the second time because he had an apparent viral gastroenteritis with multiple episodes of diarrhea. On the morning of 04/09/2016, the patient presented back and underwent an uncomplicated robot-assisted surgery. He did not have an adhesion in the left upper lobe to the chest wall, this came down nicely. I did a wedge resection, it was a bit larger than I thought. He has good lung function and we wedged it out. A question at the margins and I told Dr. Villatoro from pathology that we would simply proceed with a lobectomy. This was done without difficulty. He had a mediastinal lymphadenectomy and difficulty get into the area. He tolerated it very well. He was extubated in the room. BLOOD LOSS: Negligible. DESCRIPTION OF PROCEDURE: The patient was brought to the operating room and laid in supine position. General anesthesia induced and endotracheal intubation was performed with a double lumen tube. After monitoring device was placed, the patient was turned into right lateral decubitus position and his left chest prepped, draped in the usual sterile fashion. An incision anteriorly for an 8 mm port and the camera was placed with CO2 insufflation and we then placed a 5 mm port in the eighth interspace posteriorly and then a 12 mm camera port 10 cm away from our anterior port and then 10 cm more posterior and another 8 mm port. I then placed a 12 mm assistance port anteriorly 2 interspaces below the 8th interspace. CO2 was insufflated. Upon entering, there was an adhesion noted anteriorly and superiorly. This was taken down with the bipolar dissectors. Attention was then turned towards the lingula. We actually went a bit more proximal and I thought and we were able to wedge out a generous portion. It was a bit larger than I thought and we sent down for frozen section after removing in an Endobag. Frozen section showed an adenocarcinoma. We elected to proceed with a lobectomy. The fissures were almost complete. I freed up the inferior pulmonary ligament, biopsies of the level 9 and level 8 nodes. Towards posterior, biopsied 2 level 10 nodes and dissected out the artery posteriorly, so we could see the branches to the upper lobe. The artery was then flipped back around posteriorly, freeing up the anterior pleura with care taken to avoid injury to the phrenic nerve. Level 10, level 5 and level 6 nodes were biopsied. I also biopsied multiple level 11, level 12 nodes while we were doing this dissection. I then freed up the vein; however, it was a bit difficult to get to the lingular vein with a stapler. For this reason, I developed the fissure completely and fired an Endo-ADAMS stapler across the lingular branch. I then fired a stapler across far more branches to the upper lobe. This freed it up nicely and then we were able to fire the stapler across the lingular branch separately and then the superior pulmonary vein on the left. This freed up everything quite nicely for an Endo-ADAMS stapler around the bronchus. This was then delivered off the field with an Endobag through the desk assistant's port. There was a negligible air leak. We really did not lose much in the way of blood. I did biopsy the level 5 and level 6 nodes and I was quite happy with the appearance of the arteries and the stump. A 24-Belarusian chest tube was directed towards the apex and the anterior most thoracostomy port and sutured in place with heavy silk suture. The muscle layers of all ports were closed with 0 Vicryl and then 4-0 Monocryl was used in a running subcuticular fashion to approximate the wound edges. The patient tolerated it quite well. I attest to the content of the Intraoperative Record and any orders documented therein. Any exception s are noted below.
--- NOTE | 2017-04-09 15:36 | Anesthesiology Progress Note ---
Anesthesia Post Op Note Date & Time Apr 09, 2017 at 15:36 Vital Signs Pain Intensity: 4.0 Vital Signs Past 12 Hours Date Time Temp Pulse Resp B/P (MAP) Pulse Ox O2 Delivery O2 Flow Rate FiO2 04/09/17 15:00 36.3 67 16 107/44 99 Nasal Cannula 3 04/09/17 07:57 36.7 73 18 135/83 99 Room Air Notes Mental Status: alert / awake / arousable, participated in evaluation Pt Amnestic to Procedure: Yes Nausea / Vomiting: adequately controlled Pain: adequately controlled Airway Patency, RR, SpO2: stable & adequate BP & HR: stable & adequate Hydration State: stable & adequate Anesthetic Complications: no major complications apparent
[2017-04-09] MEDS: D5W AND 1/2NSS 1,000 ML IV SCH (16:42)
[2017-04-09] MEDS: ACETAMINOPHEN IV 1,000 MG in EMPTY BAG 0 ML IV SCH (17:33)
[2017-04-09] MEDS: KETOROLAC TROMETHAMINE 15 MG/ML VIAL IV. SCH (17:35)
[2017-04-09] MEDS: METOCLOPRAMIDE HCL INJ 5 MG/ML 2 ML VIAL IV. SCH (17:37)
[2017-04-09] MEDS: CEFAZOLIN IV 2,000 MG in SYRINGE 0 ML IV SCH (20:34)
[2017-04-09] MEDS: MoRPHine SULFATE 2 MG/ML CARP IV PRN (20:35)
[2017-04-09] MEDS: METOPROLOL TARTRATE 25 MG TAB PO SCH (20:46)
[2017-04-09] MEDS: RANITIDINE HCL 150 MG TAB PO SCH (20:48)
[2017-04-09] MEDS: DOCUSATE SODIUM 100 MG CAP PO SCH (20:48)
[2017-04-09] MEDS: PANTOprazole SOD 40 MG TAB PO SCH (20:48)
[2017-04-09] MEDS: TAMSULOSIN HCL 0.4 MG CAP PO SCH (20:48)
[2017-04-10] VITALS (9 sets, daily range): BP systolic 92–114; BP diastolic 60–75; PULSE 74–91; TEMP 36.6–37; O2SAT 90–96
[2017-04-10] MEDS: ACETAMINOPHEN IV 1,000 MG in EMPTY BAG 0 ML IV SCH (00:36)
[2017-04-10] MEDS: MoRPHine SULFATE 2 MG/ML CARP IV PRN ×2 (00:37→07:45)
[2017-04-10] MEDS: KETOROLAC TROMETHAMINE 15 MG/ML VIAL IV. SCH ×3 (02:24→18:15)
[2017-04-10] MEDS: METOCLOPRAMIDE HCL INJ 5 MG/ML 2 ML VIAL IV. SCH ×2 (02:24→10:02)
[2017-04-10] MEDS: D5W AND 1/2NSS 1,000 ML IV SCH (02:25)
[2017-04-10] MEDS: CEFAZOLIN IV 2,000 MG in SYRINGE 0 ML IV SCH (04:20)
--- NOTE | 2017-04-10 06:56 | DIAGNOSTIC IMAGING REPORT ---
CHEST ONE VIEW PORTABLE CLINICAL HISTORY: KATELYN post procedural dyspnea COMPARISON STUDY: 04/09/2017. FINDINGS: left-sided chest tube in good position. Very small medial left apical pneumothorax having a maximum pleural separation of 6 mm. This is similar as compared to the prior study given the variations in measurement. Mild left parenchymal prominence in both lung bases similar. Subsegmental atelectasis right base is unchanged. IMPRESSION: Small residual left apical pneumothorax medially essentially unchanged finding from the prior study. The above report was generated using voice recognition software. It may contain grammatical, syntax or spelling errors. Electronically signed by: Todd Brown M.D. 04/10/2017 6:55 AM Dictated Date/Time: 04/10/2017 6:53 AM
[2017-04-10 07:17] LABS: BASO % 0.1 %; BASO ABS # 0.01 K/uL (0-0.2); HEMATOCRIT 38.7 % (42-52); HEMOGLOBIN 13.1 g/dL (14.0-18.0); IG# 0.01 K/uL (0.00-0.02); LYMPH % 7.9 %; LYMPH ABS # 0.72 K/uL (1.2-3.4); MEAN CELL VOLUME 91.7 fL (80-100); MEAN CORPUSCULAR HGB CONC 33.9 g/dl (32-36); MEAN PLATELET VOLUME 9.1 fL (7.4-10.4); MONO ABS # 0.91 K/uL (0.11-0.59); NEUT % 81.9 %; NEUT ABS # 7.45 K/uL (1.4-6.5); PLATELET COUNT 203 K/uL (130-400); RED CELL DISTRIBUTION WIDTH CV 13.6 % (11.5-14.5); RED CELL DISTRIBUTION WIDTH SD 45.1 fL (36.4-46.3)
[2017-04-10 07:47] LABS: CALCIUM 8.6 mg/dl (8.5-10.1); CREATININE 0.77 mg/dl (0.60-1.40); POTASSIUM 3.8 mmol/L (3.5-5.1)
--- NOTE | 2017-04-10 08:06 | Anesthesiology Progress Note ---
Anesthesia Post Op Note Date & Time Apr 10, 2017 at 08:05 Vital Signs Pain Intensity: 7.0 Vital Signs Past 12 Hours Date Time Temp Pulse Resp B/P (MAP) Pulse Ox O2 Delivery O2 Flow Rate FiO2 04/10/17 06:59 36.8 76 16 105/67 (80) 96 Room Air 04/10/17 05:19 91 94 Room Air 04/10/17 05:00 36.6 81 16 98/62 (74) 92 Room Air 04/10/17 03:00 36.6 86 16 101/63 (76) 93 Room Air 04/10/17 00:59 37.0 84 16 105/68 (80) 93 Room Air 04/09/17 23:16 Room Air 04/09/17 22:56 36.8 79 18 95/59 (71) 94 Room Air 04/09/17 21:28 94/85 (88) 04/09/17 21:00 36.5 98 18 82/50 (61) 97 Room Air 04/09/17 20:46 91 99/64 (76) Notes Mental Status: alert / awake / arousable, participated in evaluation Pt Amnestic to Procedure: Yes Nausea / Vomiting: adequately controlled Pain: adequately controlled Airway Patency, RR, SpO2: stable & adequate BP & HR: stable & adequate Hydration State: stable & adequate Anesthetic Complications: no major complications apparent
[2017-04-10] MEDS: CALCIUM 600MG + VIT D 400 IU TAB PO SCH (08:34)
[2017-04-10] MEDS: DOCUSATE SODIUM 100 MG CAP PO SCH ×2 (08:34→20:57)
[2017-04-10] MEDS: MULTIVITAMIN TAB PO SCH (08:35)
[2017-04-10] MEDS: CHOLECALCIFEROL 1000 INTER.UNIT TAB PO SCH (08:35)
[2017-04-10] MEDS: RANITIDINE HCL 150 MG TAB PO SCH ×2 (08:35→20:57)
[2017-04-10] MEDS: TOCOPHERYL, DL-ALPHA 400 INTER.UNIT CAP PO SCH (08:35)
[2017-04-10] MEDS: METOPROLOL TARTRATE 25 MG TAB PO SCH ×2 (08:38→20:57)
[2017-04-10] MEDS: ASPIRIN 81 MG ECTAB PO SCH (08:40)
[2017-04-10] MEDS: ATORVASTATIN 40 MG TAB PO SCH (08:41)
--- NOTE | 2017-04-10 08:44 | SURGERY PROGRESS NOTE ---
DATE: 04/10/2017 Mr. Stone was seen today on 04/10/2017, one day after a robot-assisted thoracoscopic left upper lobectomy and mediastinal lymphadenectomy for an adenocarcinoma of the lung. He looks very good. He is on room air. He is making good urine. He is tolerating a house diet. He is sitting up in a chair and he has just finished breakfast. His lungs sound quite good. His x-ray looks very good. He has not drained much fluid; however, he does have a small air leak. At any rate, at this point, I think he is coming along as expected. We are going to have him ambulating. I am going to stop his IV. I am hopeful we can get him out of the hospital by the end of the week. He looks very good.
[2017-04-10] MEDS ORDERED: NON-FORMULARY MEDICATION (Coenzyme Q10 (Ubidecarenone) (Coq10) 1 CAP) PO SCH (09:00)
[2017-04-10] MEDS ORDERED: [UNRECOGNIZED DRUG - OTHER] PO SCH (09:00)
[2017-04-10] MEDS ORDERED: BIOFLAVONOID PRODUCTS PO SCH (09:00)
[2017-04-10] MEDS: ENOXAPARIN 40 MG/0.4 ML SYR SQ SCH (09:36)
[2017-04-10] MEDS ORDERED: NURSING VERBAL MED ORDER ONE (11:30)
[2017-04-10] MEDS: OXYCODONE HCL IR 5 MG TAB (IMMEDIATE RELEASE) PO PRN ×3 (11:50→20:50)
[2017-04-10] MEDS: ACETAMINOPHEN 325 MG TAB PO SCH ×3 (11:50→23:44)
[2017-04-10] MEDS: TAMSULOSIN HCL 0.4 MG CAP PO SCH (20:59)
[2017-04-10] MEDS: PANTOprazole SOD 40 MG TAB PO SCH (20:59)
[2017-04-11] MEDS: OXYCODONE HCL IR 5 MG TAB (IMMEDIATE RELEASE) PO PRN ×4 (00:46→23:39)
[2017-04-11] MEDS: KETOROLAC TROMETHAMINE 15 MG/ML VIAL IV. SCH ×2 (02:28→11:00)
[2017-04-11] MEDS: ACETAMINOPHEN 325 MG TAB PO SCH ×4 (05:58→23:39)
--- NOTE | 2017-04-11 07:04 | DIAGNOSTIC IMAGING REPORT ---
CHEST ONE VIEW PORTABLE CLINICAL HISTORY: KATELYN postoperative COMPARISON STUDY: 04/10/2017 FINDINGS: Left-sided chest tube in good position. No significant pneumothorax. Unchanging subtle interstitial prominence both lung bases with a small amount of subcutaneous emphysematous change. Unchanging subsegmental atelectasis right base. IMPRESSION: 1. Left chest tube in good position. 2. No significant postprocedural pneumothorax at the current time. 3. Study is otherwise unchanged. The above report was generated using voice recognition software. It may contain grammatical, syntax or spelling errors. Electronically signed by: Todd Brown M.D. 04/11/2017 7:03 AM Dictated Date/Time: 04/11/2017 7:02 AM
[2017-04-11 07:44] VITALS: BP 120/68; PULSE 70; TEMP 36.7; O2SAT 93
[2017-04-11] MEDS: DOCUSATE SODIUM 100 MG CAP PO SCH ×2 (08:25→20:49)
[2017-04-11] MEDS: ASPIRIN 81 MG ECTAB PO SCH (08:25)
[2017-04-11] MEDS: CALCIUM 600MG + VIT D 400 IU TAB PO SCH (08:25)
[2017-04-11] MEDS: ATORVASTATIN 40 MG TAB PO SCH (08:26)
[2017-04-11] MEDS: MULTIVITAMIN TAB PO SCH (08:26)
[2017-04-11] MEDS: METOPROLOL TARTRATE 25 MG TAB PO SCH ×2 (08:26→20:47)
[2017-04-11] MEDS: TOCOPHERYL, DL-ALPHA 400 INTER.UNIT CAP PO SCH (08:27)
[2017-04-11] MEDS: CHOLECALCIFEROL 1000 INTER.UNIT TAB PO SCH (08:27)
[2017-04-11] MEDS: RANITIDINE HCL 150 MG TAB PO SCH ×2 (08:27→20:49)
[2017-04-11] MEDS: ENOXAPARIN 40 MG/0.4 ML SYR SQ SCH (08:31)
[2017-04-11 09:13] VITALS: O2SAT 93
--- NOTE | 2017-04-11 12:40 | SURGERY PROGRESS NOTE ---
DATE: 04/10/2017 SUBJECTIVE: Mr. Stone was seen today on 04/11/2017, 2 days status post a robot-assisted thoracoscopic left upper lobectomy. He has done very well with this. He really has no complaints. His pain has been very well controlled with the oral oxycodone. His chest tube is draining very little fluid, but he still has a tiny air leak. His pulse oximetry is 93% on room air. He is sitting up in a chair, just finished breakfast. He has been ambulating in the hallway. He is urinating well. His chest x-ray shows full expansion of his lungs with no infiltrates or pleural effusions. ASSESSMENT AND PLAN: Postoperative day #2 status post robot-assisted thoracoscopic left upper lobectomy with mediastinal lymph node dissection. He looks very good. We are going to see how he looks tomorrow. This air leak is very small, but I think his chest tube may be in for the next day or two. He looks very good. Path is pending.
[2017-04-11 15:25] VITALS: BP 95/64; PULSE 73; TEMP 36.7; O2SAT 94
[2017-04-11] MEDS: TAMSULOSIN HCL 0.4 MG CAP PO SCH (20:49)
[2017-04-11] MEDS: PANTOprazole SOD 40 MG TAB PO SCH (20:49)
[2017-04-11 20:50] VITALS: BP 106/71; PULSE 86
[2017-04-11 22:50] VITALS: BP 115/74; PULSE 72; TEMP 37; O2SAT 92
[2017-04-12] MEDS: OXYCODONE HCL IR 5 MG TAB (IMMEDIATE RELEASE) PO PRN ×4 (04:48→20:53)
[2017-04-12] MEDS: ACETAMINOPHEN 325 MG TAB PO SCH ×4 (05:13→23:14)
--- NOTE | 2017-04-12 06:59 | DIAGNOSTIC IMAGING REPORT ---
CHEST ONE VIEW PORTABLE CLINICAL HISTORY: Postop left upper lobectomy COMPARISON STUDY: 04/11/2017 FINDINGS: The cardiac and mediastinal contours remain stable. There is left lung volume loss. There is a left-sided chest tube unchanged in position. There is no pneumothorax. There is a linear band of subsegmental atelectatic change at the right lung base.[There is a small amount of subcutaneous emphysema on the left. IMPRESSION: Stable postoperative findings. No evidence of pneumothorax. Electronically signed by: Yunier Levi M.D. 04/12/2017 6:57 AM Dictated Date/Time: 04/12/2017 6:57 AM
[2017-04-12 07:33] VITALS: BP 112/78; PULSE 80; TEMP 36.7; O2SAT 91
[2017-04-12] MEDS ORDERED: BISACODYL 10 MG SUPP PR PRN (08:45)
[2017-04-12] MEDS ORDERED: SOD PHOSPHATE/SOD BIPHOSPHATE ENEMA 132 ML BTL PR PRN (08:45)
[2017-04-12] MEDS: TOCOPHERYL, DL-ALPHA 400 INTER.UNIT CAP PO SCH (09:00)
[2017-04-12] MEDS: ASPIRIN 81 MG ECTAB PO SCH (09:21)
[2017-04-12] MEDS: CHOLECALCIFEROL 1000 INTER.UNIT TAB PO SCH (09:22)
[2017-04-12] MEDS: CALCIUM 600MG + VIT D 400 IU TAB PO SCH (09:22)
[2017-04-12] MEDS: MULTIVITAMIN TAB PO SCH (09:22)
[2017-04-12] MEDS: DOCUSATE SODIUM 100 MG CAP PO SCH ×2 (09:22→20:54)
[2017-04-12] MEDS: ATORVASTATIN 40 MG TAB PO SCH (09:22)
[2017-04-12] MEDS: RANITIDINE HCL 150 MG TAB PO SCH ×2 (09:22→20:54)
[2017-04-12] MEDS: METOPROLOL TARTRATE 25 MG TAB PO SCH ×2 (09:23→20:54)
[2017-04-12] MEDS: ENOXAPARIN 40 MG/0.4 ML SYR SQ SCH (09:24)
--- NOTE | 2017-04-12 09:47 | Surgery Progress Note ---
Subjective Date of Service: Apr 12, 2017. Pt. notes no SOB or CP. He is ambulating in hallway. He is tolerating regular diet and voiding without difficulty. He notes he is constipated. Objective Vitals Date Time Temp Pulse Resp B/P (MAP) Pulse Ox O2 Delivery O2 Flow Rate FiO2 04/12/17 07:50 Room Air 04/12/17 07:33 36.7 80 18 112/78 (89) 91 Room Air 04/11/17 23:44 Room Air 04/11/17 22:50 37.0 72 18 115/74 (88) 92 Room Air 04/11/17 20:50 86 106/71 (83) 04/11/17 16:40 Room Air 04/11/17 15:25 36.7 73 16 95/64 (74) 94 Room Air Physical Exam General: + well developed, + well nourished, No distress CV: + RRR Pulmonary: + pertinent finding (decreased at bases), No accessory muscle use, No respiratory distress Abdomen: + non tender, + pertinent finding (slight distention noted) Extremities: No calf tenderness Neurologic: + alert & oriented x 3 Radiology CXR today shows no pneumothorax Drains / Tubes chest tube (no air leak; 220 cc last 24 hours; 50 cc last shift) Assessment & Plan 71 year old male s/p KATELYN -will pull chest tube tomorrow if no air leak -encourage ambulation, use of IS, coughing, deep breathing -continue pain control measures -will implement more aggressive bowel regimen due to constipation OTHER -lovenox for DVT prevention
[2017-04-12] MEDS: POLYETHYLENE (MIRALAX) 17 GM PACK PO SCH (12:07)
[2017-04-12 15:25] VITALS: BP 109/72; PULSE 75; TEMP 36.7; O2SAT 94
[2017-04-12 20:40] VITALS: BP 111/73; PULSE 89; O2SAT 96
[2017-04-12] MEDS: PANTOprazole SOD 40 MG TAB PO SCH (20:53)
[2017-04-12] MEDS: TAMSULOSIN HCL 0.4 MG CAP PO SCH (20:53)
[2017-04-12 22:59] VITALS: BP 111/76; PULSE 79; TEMP 36.9; O2SAT 94
[2017-04-13] MEDS: OXYCODONE HCL IR 5 MG TAB (IMMEDIATE RELEASE) PO PRN ×3 (01:18→11:27)
[2017-04-13] MEDS: ACETAMINOPHEN 325 MG TAB PO SCH (05:39)
--- NOTE | 2017-04-13 07:15 | DIAGNOSTIC IMAGING REPORT ---
CHEST ONE VIEW PORTABLE CLINICAL HISTORY: KATELYN COMPARISON STUDY: Chest radiograph April 12, 2017. FINDINGS: A left sided chest tube remains in place. No pneumothorax is identified. Linear right lung opacities suggest atelectasis. There is no evidence for pulmonary edema. Left hemithorax volume loss is postsurgical. Cardiomediastinal silhouette is stable. IMPRESSION: Left chest tube in place. No pneumothorax. Unchanged postoperative appearance. Electronically signed by: Kwame Chaves M.D. 04/13/2017 7:14 AM Dictated Date/Time: 04/13/2017 7:11 AM
[2017-04-13 07:30] VITALS: BP 110/72; PULSE 78; TEMP 36.6; O2SAT 94
[2017-04-13] MEDS ORDERED: CLC100 PO (08:10)
[2017-04-13] MEDS ORDERED: OXYC-57 PO (08:10)
[2017-04-13] MEDS ORDERED: MRLP17 PO (08:10)
--- NOTE | 2017-04-13 08:15 | Discharge Instructions ---
Discharge Instructions Date of Service Apr 13, 2017. Admission Reason for Admission: Left Lung Mass Discharge Discharge Diagnosis / Problem: Left Lung Mass Discharge Goals Goal(s): Learn about illness Activity Recommendations Activity Limitations: as noted below Lifting Limitations: none .1. You may remove dressings on Sunday, September 13, 2017, and shower thereafter. No tub baths. 2. Do not drive if taking percocet. 3. Do not take tylenol if using percocet. 4. Do not drive until cleared to do so by Dr. Canseco. Instructions / Follow-Up Instructions / Follow-Up 1. Office appointment with Dr. Canseco in 1 week. Office will call with date and time of appointment. Go to hospital one hour before appointment to have a chest x-ray taken. Current Hospital Diet Patient's current hospital diet: Regular Diet Discharge Diet Recommended Diet: Regular Diet Procedures Procedures Performed: Robot assisted wedge resection lingula Robot assisted lefy upper lobectomy Mediastinal lymphadenectomy Pending Studies Studies pending at discharge: no Laboratory Results Lipid Panel Test 02/01/17 08:40 Range/Units Triglycerides Level 92 0-150 mg/dl Cholesterol Level 108 0-200 mg/dl HDL Cholesterol 49 mg/dl Cholesterol/HDL Ratio 2.2 LDL Cholesterol, Calculated 41 mg/dl Medical Emergencies . Who to Call and When: Medical Emergencies: If at any time you feel your situation is an emergency, please call 911 immediately. . Non-Emergent Contact Non-Emergency issues call your: Surgeon Call Non-Emergent contact if: you have a fever, your pain is not controlled, wound has increased drainage . "Provider Documentation" section prepared by Alejandro Ruelas. . VTE Core Measure Inpt VTE Proph given/why not?: Enoxaparin (Lovenox)SQ
--- NOTE | 2017-04-13 08:45 | Discharge Summary ---
Discharge Summary Date of Service Apr 13, 2017. Discharge Summary Admission Date: Apr 09, 2017 at 11:00 Discharge Date: Apr 13, 2017 Discharge Disposition: Home Principal Diagnosis: Non-small cell lung cancer Immunizations: Have You Had Influenza Vaccine: Yes Influenza Vaccine Date: Dec 06, 2012 History of Tetanus Vaccine?: Yes Tetanus Immunization Date: Jun 05, 2010 History of Pneumococcal: Yes Pneumococcal Date: Dec 06, 2012 History of Hepatitis B Vaccine: No Procedures: 1. Robotic Assisted Left VATS with Wedge Resection followed by KATELYN and Lymphadenectomy Consultations: none Medication Reconciliation New Medications: Oxycodone/Acetaminophen 5MG/325MG (Percocet 5MG/325MG) Tab 1-2 TABLETS PO Q4H PRN for Pain, #25 TAB Docusate Sodium (Docusate Sodium) 100 Mg Cap 100 MG PO BID for 30 Days, #60 CAP 0 Refills Polyethylene (Miralax) 17 Gm Pow 17 GM PO DAILY for 30 Days, 0 Refills Continued Medications: Acetaminophen (Tylenol) 500 Mg Tab 1000 MG PO Q6 PRN for Headache or Pain, TAB Aspirin (Aspirin Chewable) 81 Mg Chew 81 MG PO QAM PER SPOUSE-WILL CONTINUE TAKING BEFORE SURG PER THEIR INSTRUCTIONS Atorvastatin (Lipitor) 80 Mg Tab 80 MG PO QAM, TAB Bioflavonoid Products (Shelia-C) 1 Tab Tab 500 MG PO QAM Calcium Carbonate-Vitamin D (Oscal 500/200 D-3) 1 Tab Tab 1 TAB PO QAM Cholecalciferol (Vitamin D3) 1,000 Unit Tab 1 TAB PO QAM for 90 Days, #90 TAB 3 Refills Coenzyme Q10 (Ubidecarenone) (Coq10) 100 Mg Cap 1 CAP PO QAM Metoprolol Tartrate (Lopressor) (Lopressor) 25 Mg Tab 12.5 MG PO BID, TAB Multiple Vitamin (Multivitamin) 1 Tab Tab 1 TAB PO QAM, TAB Pantoprazole (Protonix) 40 Mg Tab 40 MG PO QPM, #30 TAB Ranitidine (Zantac) 150 Mg Tab 150 MG PO BID, TAB Tamsulosin HCl (Tamsulosin HCl) 0.4 Mg Cap 0.4 MG PO HS Ticagrelor (Brilinta) 90 Mg Tab 1 TAB PO BID PER SPOUSE-INSTRUCTED TO TAKE LAST DOSE 03/12/17 AM AND HOLD Vitamin E (Alph-E) 400 Unit Cap 400 UNITS PO QAM Discharge Exam Review of Systems: Constitutional: No fever, No chills Respiratory: No cough, No shortness of breath Cardiovascular: No chest pain Abdomen: + constipation, No nausea, No vomiting Physical Exam: General Appearance: WD/WN, no apparent distress Respiratory/Chest: no respiratory distress, no accessory muscle use, + decreased breath sounds (at bases) Cardiovascular: regular rate, rhythm Abdomen / GI: non tender, soft Extremities: no calf tenderness Neurologic/Psychiatric: alert, oriented x 3 Hospital Course 71 year old male admitted with left lung mass - pt. underwent a Robotic Assisted Left VATS with Wedge Resection followed by KATELYN and Lymphadenectomy on 04/09/17 -pathology showed non-small cell Lung CA -chest tube managed in appropriate fashion and pulled on 04/13/17: -post-pull CXR showed no pneumothorax -ambulation, use of IS, coughing, deep breathing encouraged post-op -pain control measures implemented post-op CONSTIPATION -bowel regimen implemented: -colace, fleets, dulcolax, miralax -pt. instructed to continue colace and miralax at time of d/c OTHER -lovenox utilized for DVT prevention Total Time Spent: Greater than 30 minutes This includes examination of the patient, discharge planning, medication reconciliation, and communication with other providers. Discharge Instructions Please refer to the electronic Patient Visit Report (Discharge Instructions) for additional information. Follow-Up 1. Dr. Canseco in 1 week with CXR Additional Copies To Zack Tate M.D.
--- NOTE | 2017-04-13 08:46 | DIAGNOSTIC IMAGING REPORT ---
CHEST ONE VIEW PORTABLE CLINICAL HISTORY: tube removal COMPARISON STUDY: 04/13/2017 FINDINGS: The left-sided chest tube has been removed. The cardiac and mediastinal contours remain stable. No pneumothorax is visualized. There is left-sided volume loss unchanged the prior study. There is a linear band of subsegmental atelectatic change at the right lung base.[ IMPRESSION: Postoperative findings of the left. Interval removal of the left-sided chest tube. No pneumothorax identified. Electronically signed by: Yuiner Levi M.D. 04/13/2017 8:45 AM Dictated Date/Time: 04/13/2017 8:44 AM
[2017-04-13] MEDS: POLYETHYLENE (MIRALAX) 17 GM PACK PO SCH (09:00)
[2017-04-13] MEDS: TOCOPHERYL, DL-ALPHA 400 INTER.UNIT CAP PO SCH (09:00)
[2017-04-13] MEDS: DOCUSATE SODIUM 100 MG CAP PO SCH (09:44)
[2017-04-13] MEDS: CALCIUM 600MG + VIT D 400 IU TAB PO SCH (09:44)
[2017-04-13] MEDS: ATORVASTATIN 40 MG TAB PO SCH (09:45)
[2017-04-13] MEDS: ASPIRIN 81 MG ECTAB PO SCH (09:45)
[2017-04-13] MEDS: METOPROLOL TARTRATE 25 MG TAB PO SCH (09:48)
[2017-04-13] MEDS: MULTIVITAMIN TAB PO SCH (09:48)
[2017-04-13] MEDS: RANITIDINE HCL 150 MG TAB PO SCH (09:48)
[2017-04-13] MEDS: CHOLECALCIFEROL 1000 INTER.UNIT TAB PO SCH (09:49)
[2017-04-13] MEDS: ENOXAPARIN 40 MG/0.4 ML SYR SQ SCH (09:50)
[2017-04-13 11:13] VITALS: BP 110/72; PULSE 78; TEMP 36.6; O2SAT 94
== END 2017-04-13 11:50 | disposition home or self-care (01) | DRG 165 ==
LOC: C.ACU 08:51 → C.MSW 11:00 → ENRESERV 15:32
PROVIDERS: ADMIT Surgery; ATTEND Surgery
PROC: 0BTG4ZZ Resection of Left Upper Lung Lobe, Percutaneous Endoscopic Approach (ICD-10-PCS; principal; 2017-04-09 11:00)
PROC: 8E0W4CZ Robotic Assisted Procedure of Trunk Region, Percutaneous Endoscopic Approach (ICD-10-PCS; principal; 2017-04-09 11:00)
PROC: 0BT Respiratory System, Resection (ICD-10-PCS; principal; 2017-04-09 11:00)
PROC: 07B74ZX Excision of Thorax Lymphatic, Percutaneous Endoscopic Approach, Diagnostic (ICD-10-PCS; principal; 2017-04-09 11:00)
DX: C34.12 Malignant neoplasm of upper lobe, left bronchus or lung (principal); I25.2 Old myocardial infarction; K59.00 Constipation, unspecified; I10 Essential (primary) hypertension; E78.5 Hyperlipidemia, unspecified; Z87.891 Personal history of nicotine dependence; Z79.82 Long term (current) use of aspirin

== ENCOUNTER → 2017-04-19 | Outpatient (CLI) | payer OTHER, BC ==
[~2017-04-19] MED LIST changes: +CLC100 PO; -LACTATED RINGER'S 1000ML 1,000 ML IV SCH; +MRLP17 PO; +OXYC-57 PO
--- NOTE | 2017-04-19 13:19 | DIAGNOSTIC IMAGING REPORT ---
CHEST 2 VIEWS ROUTINE CLINICAL HISTORY: Z98.890 Post-operative [id number] postoperative COMPARISON STUDY: 04/13/2017 FINDINGS: Stable postoperative changes left hemithorax. Perhaps slight increase in left perihilar atelectasis. Nondisplaced fracture left eighth rib . Right lung is clear. IMPRESSION: Stable postoperative changes left hemithorax. Fracture left eighth rib posteriorly. The above report was generated using voice recognition software. It may contain grammatical, syntax or spelling errors. Electronically signed by: Todd Brown M.D. 04/19/2017 1:18 PM Dictated Date/Time: 04/19/2017 1:16 PM
== END | disposition home or self-care (01) ==
LOC: C.RAD1850 13:06
PROVIDERS: ATTEND Surgery
DX: Z98.890 Other specified postprocedural states (principal); S22.32XA Fracture of one rib, left side, initial encounter for closed fracture; X58.XXXA Exposure to other specified factors, initial encounter

== ENCOUNTER → 2017-05-21 | Outpatient (CLI) | payer OTHER, BC ==
[~2017-05-21] MED LIST changes: +RANI150T85 PO; -ZNTT/150 PO
--- NOTE | 2017-05-21 10:09 | DIAGNOSTIC IMAGING REPORT ---
TWO VIEW CHEST CLINICAL HISTORY: Postprocedural pneumothorax. FINDINGS: PA and lateral chest radiographs are compared to study dated 04/19/2017 and correlated with chest CT dated 03/20/2017. The heart is mildly enlarged. The pulmonary vasculature is noncongested. Emphysema and chronic interstitial thickening are similar to previous. Volume loss in the left lung is consistent with surgical resection. There is left basilar atelectasis. No large pleural effusion is identified. No pneumothorax is seen. The skeletal structures are osteopenic. Left-sided rib fractures are again noted. IMPRESSION: 1. Cardiomegaly, emphysema, and changes from left-sided pulmonary resection are again noted. 2. No pneumothorax is identified. Electronically signed by: Balbir Melo M.D. 05/21/2017 10:08 AM Dictated Date/Time: 05/21/2017 10:06 AM
== END | disposition home or self-care (01) ==
LOC: C.RAD1850 09:54
PROVIDERS: ATTEND Surgery
DX: J95.811 Postprocedural pneumothorax (principal)

== ENCOUNTER → 2017-07-11 | Outpatient (CLI) | payer OTHER, BC ==
[2017-07-11 10:07] LABS: BASO % 0.4 %; BASO ABS # 0.02 K/uL (0-0.2); EOS % 3.1 %; EOS ABS # 0.16 K/uL (0-0.5); HEMATOCRIT 43.7 % (42-52); HEMOGLOBIN 14.9 g/dL (14.0-18.0); IG# 0.01 K/uL (0.00-0.02); LYMPH % 20.9 %; LYMPH ABS # 1.07 K/uL (1.2-3.4); MEAN CELL VOLUME 90.5 fL (80-100); MEAN CORPUSCULAR HEMOGLOBIN 30.8 pg (25-34); MEAN CORPUSCULAR HGB CONC 34.1 g/dl (32-36); MEAN PLATELET VOLUME 9.4 fL (7.4-10.4); MONO % 11.7 %; NEUT % 63.7 %; NEUT ABS # 3.26 K/uL (1.4-6.5); PLATELET COUNT 241 K/uL (130-400); RED CELL DISTRIBUTION WIDTH CV 13.7 % (11.5-14.5); RED CELL DISTRIBUTION WIDTH SD 45.8 fL (36.4-46.3); WHITE BLOOD COUNT 5.12 K/uL (4.8-10.8)
[2017-07-11 10:44] LABS: ALBUMIN 3.4 gm/dl (3.4-5.0); ALT/SGPT 33 U/L (12-78); BLOOD UREA NITROGEN 12 mg/dl (7-18); CALCIUM 8.7 mg/dl (8.5-10.1); CARBON DIOXIDE 23 mmol/L (21-32); CREATININE 0.74 mg/dl (0.60-1.40); GLUCOSE 90 mg/dl (70-99); POTASSIUM 3.7 mmol/L (3.5-5.1); SODIUM 139 mmol/L (136-145)
[2017-07-11 10:47] LABS: ALKALINE PHOSPHATASE 82 U/L (45-117); AST/SGOT 24 U/L (15-37)
== END | disposition home or self-care (01) ==
LOC: C.LAB1850 09:13
PROVIDERS: ATTEND Internal Medicine Hematology & Oncology
DX: C34.12 Malignant neoplasm of upper lobe, left bronchus or lung (principal)

== ENCOUNTER → 2017-07-20 | Outpatient (CLI) | payer OTHER, BC ==
--- NOTE | 2017-07-20 10:06 | DIAGNOSTIC IMAGING REPORT ---
(CHEST) THORAX WITHOUT CLINICAL HISTORY: C34.90 Adenocarcinoma of lung COMPARISON STUDY: 03/20/2017 CT DOSE: 553.09 mGy.cm TECHNIQUE: CT of the thorax was performed from the thoracic inlet to the lung bases. Images are reviewed in the axial, sagittal, and coronal planes. IV contrast was not administered for this examination. A dose lowering technique was utilized adhering to the principles of ALARA. FINDINGS: Thyroid: Imaged portions of the thyroid gland are normal in appearance. Thoracic aorta: There is aneurysmal dilatation of the ascending thoracic aorta which measures 46 mm. This remain similar to the prior study. Heart: There are coronary artery calcifications. Lungs and pleural spaces: There is a small right pleural effusion. There are postsurgical changes of a left upper lobectomy. There is an 8 mm pleural-based left lower lobe pulmonary nodule. This previously measured 6.5 mm. There is a 6 mm left lower lobe pulmonary nodule which previously measured 4.2 mm. There is a stable 6 mm left upper lobe perifissural nodule There is no acute parenchymal consolidation. There is pulmonary emphysema. Mediastinum: There is no mediastinal lymphadenopathy. Jennifer: There is no evidence of pathologic hilar adenopathy given the limitations of a noncontrast study Axilla: There is no evidence of pathologic axillary lymphadenopathy Upper abdomen: There is a 79 mm right renal cyst. There is 63 mm left renal cyst. There is cholelithiasis. Skeletal structures: There are no lytic or blastic osseous lesions. There is a healing left-sided rib fracture, likely related to recent surgery. IMPRESSION: 1. Interval left upper lobectomy 2. Very slight interval increase in the size of solid 8 mm and 6 mm left lower lobe pulmonary nodules 3. Stable aneurysmal dilatation of the ascending thoracic aorta which measures 46 mm 4. Emphysema Electronically signed by: Yunier Levi M.D. 07/20/2017 10:05 AM Dictated Date/Time: 07/20/2017 9:55 AM
== END | disposition home or self-care (01) ==
LOC: C.CTS 09:43
PROVIDERS: ATTEND Internal Medicine Critical Care Medicine
DX: C34.90 Malignant neoplasm of unspecified part of unspecified bronchus or lung (principal); J43.9 Emphysema, unspecified

== ENCOUNTER → 2017-10-24 | Outpatient (CLI) | payer OTHER, BC ==
[~2017-10-24] MED LIST changes: -OXYC-57 PO
== END | disposition home or self-care (01) ==
LOC: C.LAB 09:20
PROVIDERS: ATTEND Nurse Practitioner Adult Health
DX: R31.29 Other microscopic hematuria (principal)